=== PATIENT | female | born 1950 | race African-American/Black ===

== ENCOUNTER 2016-07-24 09:44 | Observation (INO) | payer OTHER ==
[2016-07-24 09:56] VITALS: BMI 28.5
[2016-07-24 10:30] LABS: BASOPHIL 0.8 % (0-2.0); EOSINOPHIL 4.3 % (0-4.5); MCH 28.9 pg (25.7-33.7); MCHC 33.4 g/dl (32.0-36.0); MEAN CELL VOLUME 86.5 fl (80-96); MEAN PLT VOLUME 7.9 fl (7.5-11.1); NEUTROPHILS 50.8 % (42.8-82.8); PLATELET COUNT 294 K/MM3 (134-434); RDW 13.5 % (11.6-15.6); WHITE BLOOD COUNT 5.1 K/mm3 (4.0-10.0)
--- NOTE | 2016-07-24 10:34 | PDOC ---
History of Present Illness - General History Source: Patient Exam Limitations: No Limitations - History of Present Illness Initial Comments: 07/24/16 10:38 The patient is a 65-year-old woman with a significant past medical history of hypertension, hypercholesterolemia, seasonal asthma, sleep apnea, diabetes mellitus and a pituitary tumor who presents to the emergency department via EMS for further evaluation of hyperglycemia. Patient states that she woke up at around 04:00 AM this morning, ate a bowl of rice krispies and went back to bed. She states that she woke up at around 06:00 AM to get ready to anabaptist, when she experienced dizziness, described as a room-spinning sensation. She immediately laid back in bed for a few moments, then got up to get water. She states that this has happened before, which was related to her sugars. She states that she checked her blood glucose this morning and reports a blood glucose measurement of 479. She states that she called her friend, who also suffers from diabetes and went to her friends house and noticed a much lower blood glucose measurement. EMS was activated. Blood glucose on scene was 119. She currently states that she is lightheaded. Patient states that she follow with her PMD, Dr. Consuelo Reina. She recently had her annual physical, for which blood and an ekg was performed. Patient state that her Hemoglobin A1C was 9.9 and is aware that she needs to change her eating habits. No fever, chills, generalized weakness. No chest pain, palpitations, headaches, neck pain, visual changes No abdominal pain, nausea, vomiting, diarrhea. No urinary complaints. Allergies: Propoxyphene Past Surgical History: Left hip replacement. Social History: No tobacco, ETOH or recreational drug use. Primary Care Physician: Dr. Consuelo Reina [phone] <Lizeth Farmer - Last Filed: 07/24/16 16:54> - General History Source: Patient, Old Records Exam Limitations: No Limitations <Abigail Sam - Last Filed: 07/24/16 17:36> - General Chief Complaint: Lightheaded Stated Complaint: DIZZINESS Time Seen by Provider: 07/24/16 10:11 Past History <Lizeth Farmer - Last Filed: 07/24/16 16:54> - Past Medical History Asthma: Yes (seasonal allergy,sleep apnea) Cancer: No Cardiac Disorders: No CVA: No COPD: No Diabetes: Yes (niddm) HTN: Yes Hypercholesterolemia: Yes - Surgical History Orthopedic Surgery: Yes (left hip replacement) - Immunization History Td Vaccination: Yes TDAP Vaccination: Yes Immunization Up to Date: Yes - Psycho/Social/Smoking Cessation Hx Anxiety: No Suicidal Ideation: No Smoking Status: Yes Smoking History: Former smoker Years of Tobacco Use: 10 Have you smoked in the past 12 months: No Number of Cigarettes Smoked Daily: 0 If you are a former smoker, when did you quit?: 1995 Cigars Per Day: 0 Information on smoking cessation initiated: No Hx Alcohol Use: No Drug/Substance Use Hx: No Substance Use Type: None Hx Substance Use Treatment: No <Abigail Sam - Last Filed: 07/24/16 17:36> - Past Medical History Allergies/Adverse Reactions: Allergies Allergy/AdvReac Type Severity Reaction Status Date / Time propoxyphene HCl Allergy Swelling Verified 07/24/16 09:52 [From Evin] Home Medications: Ambulatory Orders Aspirin [ASA -] 81 mg PO DAILY 05/08/12 Metformin HCl [Glucophage] 1,000 mg PO BID 05/08/12 Simvastatin [Zocor -] 20 mg PO HS 05/08/12 Losartan/Hydrochlorothiazide [Losartan-Hctz 50-12.5 mg Tab] 1 each PO DAILY 03/20 Salmeterol/Fluticasone [Advair 250Mcg/50Mcg -] 1 inh PO BID PRN 11/15/12 Albuterol Sulfate Inhaler - [Ventolin Hfa Inhaler -] 2 inh PO Q4H PRN 07/24/16 Ferrous Sulfate/Licor Rt Ext [Maryam Allen Herbal Tablet] 75 mg PO TIDCM Naproxen [Naprosyn -] 500 mg PO BID PRN 07/24/16 Review of Systems - Review of Systems Able to Perform ROS?: Yes Comments:: 07/24/16 10:38 GENERAL/CONSTITUTIONAL: No fever or chills. No weakness. HEAD, EYES, EARS, NOSE AND THROAT: No change in vision. No ear pain or discharge. No sore throat. CARDIOVASCULAR: Yes: Dizziness. Lightheadedness. No chest pain or shortness of breath. RESPIRATORY: No cough, wheezing, or hemoptysis. GASTROINTESTINAL: No nausea, vomiting, diarrhea or constipation. GENITOURINARY: No dysuria, frequency, or change in urination. MUSCULOSKELETAL: No joint or muscle swelling or pain. No neck or back pain. SKIN: No rash NEUROLOGIC: Yes: Dizziness. Lightheadedness. No loss of consciousness, or change in strength/sensation. ENDOCRINE: Yes: Hyperglycemia. No increased thirst. No abnormal weight change. HEMATOLOGIC/LYMPHATIC: No anemia, easy bleeding, or history of blood clots. ALLERGIC/IMMUNOLOGIC: No hives or skin allergy. <Lizeth Farmer - Last Filed: 07/24/16 16:54> *Physical Exam - Vital Signs Last Vital Signs Temp Pulse Resp BP Pulse Ox 98.8 F 97 H 18 145/94 98 07/24/16 09:52 07/24/16 09:52 07/24/16 09:52 07/24/16 09:52 07/24/16 09:52 - Physical Exam Comments: 07/24/16 10:40 GENERAL: Awake, alert, and fully oriented, in no acute distress HEAD: No signs of trauma EYES: PERRLA, EOMI, sclera anicteric, conjunctiva clear ENT: There is cerumen in the right ear, thus, the right tympanic membrane is not visible. Left tympanic membrane is within normal limits. Hearing grossly normal, nares patent, oropharynx clear without exudates. Moist mucosa NECK: Normal ROM, supple, no lymphadenopathy, JVD, or masses LUNGS: Breath sounds equal, clear to auscultation bilaterally. No wheezes, and no crackles HEART: Regular rate and rhythm, normal S1 and S2, no murmurs, rubs or gallops ABDOMEN: Soft, nontender, normoactive bowel sounds. No guarding, no rebound. No masses EXTREMITIES: Normal range of motion, no edema. No clubbing or cyanosis. No cords, erythema, or tenderness NEUROLOGICAL: Cranial nerves II through XII grossly intact. Normal speech, normal gait <Lizeth Farmer - Last Filed: 07/24/16 16:54> - Vital Signs Last Vital Signs Temp Pulse Resp BP Pulse Ox 98.8 F 97 H 18 145/94 98 07/24/16 09:52 07/24/16 09:52 07/24/16 09:52 07/24/16 09:52 07/24/16 09:52 <Abigail Sam - Last Filed: 07/24/16 17:36> ED Treatment Course - LABORATORY CBC & Chemistry Diagram: 07/24/16 10:20 07/24/16 10:20 - RADIOLOGY Radiograph Interpretation: 07/24/16 12:32 EXAM: RAD/CHEST X-RAY PORTABLE IMPRESSION: A single view the chest reveals little change since the prior study of 11/15/2012. There is an apical lordotic projection with clear lungs, normal mediastinum and sharp angles. Soft tissues are intact. There are degenerative changes. EXAM: CT/HEAD CT WITHOUT CONTRAST IMPRESSION: Sequential axial images were obtained from the base of the skull to the vertex. There is no evidence of acute intracranial hemorrhage, mass lesions or infarctions. There is a mild degree of diffuse cerebral atrophy with sulcal widening and ventricular dilatation. There is complete opacification of the right maxillary sinus and partial opacification of the right ethmoid sinus. This is consistent with acute/chronic sinusitis. Since a prior study dated 2012, there has been no significant change. <Lizeth Farmer - Last Filed: 07/24/16 16:54> - LABORATORY CBC & Chemistry Diagram: 07/24/16 10:20 07/24/16 10:20 - RADIOLOGY Radiology Studies Ordered: Category Date Time Status CHEST X-RAY PORTABLE* [RAD] Stat Radiology 07/24/16 10:08 Ordered <Abigail Sam - Last Filed: 07/24/16 17:36> Medical Decision Making - Medical Decision Making 07/24/16 16:55 Page sent out to Dr. Consuelo Reina. <Lizeth Farmer - Last Filed: 07/24/16 16:54> - Medical Decision Making 07/24/16 10:32 65-year-old female with history of diabetes, hypertension, pituitary tumor and sleep apnea who presents to the emergency Department with complaints of dizziness first described as the room spinning not lightheaded; there is no chest pain or difficulty breathing. Blood glucose in the field was 129. Differential diagnosis includes but is not limited to: Vertigo, anemia, ACS, dehydration, infection, electrolyte abnormality, toxic/metabolic derangement. Plan: 1. Labs 2. Chest x-ray 3. EKG 4. Urine 5. Observe and reevaluate 07/24/16 15:57 Addendum: All labs were reviewed and are noted in the EMR and were discussed with the patient. I've reevaluate we did the patient at this time and she is feeling improved. Cardiac enzymes are negative 2. Will discharge home. Follow- up with primary care physician within one week and return to the emergency department if symptoms persist, worsen, or new symptoms arise. 07/24/16 16:39 Attempted to discharge the patient home but she stated that she continued to feel like she was going to pass out and was very dizzy and did not feel safe going home. I will admit to observation for serial cardiac enzymes and re- evaluation. <Abigail Sam - Last Filed: 07/24/16 17:36> *DC/Admit/Observation/Transfer - Attestations Scribe Attestion: 07/24/16 10:40 Documentation prepared by Lizeth Farmer, acting as medical center director for Abigail Sam MD. <Lizeth Farmer - Last Filed: 07/24/16 16:54> - Discharge Dispostion Admit: Yes - Attestations Physician Attestion: 07/24/16 10:34 I, Dr. Abigail Sam, attest that the scribes documentation that appears above has been prepared under my direction and personally reviewed by me in its entirety. I confirmed that the note above accurately reflects all work, treatment, procedures, and medical decision-making performed by me. <Abigail Sam - Last Filed: 07/24/16 17:36> Diagnosis at time of Disposition: Lightheaded - Discharge Dispostion Disposition: HOME Condition at time of disposition: Stable - Referrals Referrals: Consuelo Reina MD [Primary Care Provider] - - Patient Instructions Printed Discharge Instructions: DI for Dizziness-Nonvertigo Additional Instructions: Follow-up with your primary care physician within one week. Return to the ED if your symptoms persist, worsen or new symptoms arise.
[2016-07-24 10:59] LABS: ALBUMIN 4.2 g/dl (3.4-5.0); ANION GAP 10 (8-16); BILIRUBIN,TOTAL 0.4 mg/dL (0.2-1.0); CALCIUM 9.5 mg/dL (8.5-10.1); CO2 26 mmol/L (21-32); CREATININE 0.9 mg/dL (0.55-1.02); GLUCOSE,RANDOM 123 mg/dL (74-106); SGOT/AST 26 U/L (15-37); SGPT/ALT 56 U/L (12-78); TOT PROT 7.7 g/dl (6.4-8.2)
[2016-07-24 11:01] LABS: ALK PHOS 89 U/L (45-117); TROPONIN I < 0.02 ng/ml (0.00-0.05)
--- NOTE | 2016-07-24 11:09 | EKG ---
Test Reason : Blood Pressure : / mmHG Vent. Rate : 087 BPM Atrial Rate : 087 BPM P-R Int : 150 ms QRS Dur : 070 ms QT Int : 376 ms P-R-T Axes : 034 -10 016 degrees QTc Int : 452 ms NORMAL SINUS RHYTHM MINIMAL VOLTAGE CRITERIA FOR LVH, MAY BE NORMAL VARIANT BORDERLINE ECG WHEN COMPARED WITH ECG OF 16-APR-2014 21:59, NO SIGNIFICANT CHANGE WAS FOUND Confirmed by EDNA GLOVER MD ([id number]) on 07/24/2016 11:08:52 AM Referred By: Confirmed By:EDNA GLOVER MD
[2016-07-24 12:58] LABS: URINE APPEARANCE CLEAR; URINE BILIRUBIN NEGATIVE (NEGATIVE); URINE BLOOD NEGATIVE (NEGATIVE); URINE COLOR STRAW; URINE GLUCOSE (UA) NEGATIVE (NEGATIVE); URINE KETONE NEGATIVE (NEGATIVE); URINE LEUK ESTERASE NEGATIVE (NEGATIVE); URINE NITRITE NEGATIVE (NEGATIVE); URINE PROTEIN NEGATIVE (NEGATIVE); URINE UROBILINOGEN NEGATIVE E.U./dl (0.2-1.0)
[2016-07-24 14:43] LABS: TROPONIN I < 0.02 ng/ml (0.00-0.05)
[2016-07-24] MEDS ORDERED: SODIUM CHLORIDE 1,000 ML IV SCH ×2 (18:00→18:45)
--- NOTE | 2016-07-24 18:29 | HP ---
Admitting History and Physical - Admission Chief Complaint: DIzziness and vertigo x 1 day History of Present Illness: 65 year old female that presents c/o dizziness and vertigo that started today . Exacerbated by supine position . Denies weakness or syncope. Associated her symptoms with intake of over the counter herbal supplement. Had BG of 470 this am History Source: Patient Limitations to Obtaining History: No Limitations - Past Medical History Cardiovascular: Yes: HTN, Hyperlipdemia Pulmonary: Yes: Asthma, Sleep Apnea Reproductive: Yes: Postmenopausal Musculoskeletal: Yes: Osteoarthritis Endocrine: Yes: Other (pituitary tumor) - Past Surgical History Additional Past Surgical History: hip replacement - Smoking History Smoking history: Former smoker Have you smoked in the past 12 months: No Aproximately how many cigarettes per day: 0 If you are a former smoker, when did you quit?: 1995 - Alcohol/Substance Use Hx Alcohol Use: No History of Substance Use: reports: None - Social History Usual Living Arrangement: Yes: With Spouse ADL: Independent History of Recent Travel: No Home Medications - Allergies Allergies/Adverse Reactions: Allergies Allergy/AdvReac Type Severity Reaction Status Date / Time propoxyphene HCl Allergy Swelling Verified 07/24/16 09:52 [From Darvon] - Home Medications Home Medications: Ambulatory Orders Aspirin [ASA -] 81 mg PO DAILY 05/08/12 Metformin HCl [Glucophage] 1,000 mg PO BID 05/08/12 Simvastatin [Zocor -] 20 mg PO HS 05/08/12 Losartan/Hydrochlorothiazide [Losartan-Hctz 50-12.5 mg Tab] 1 each PO DAILY 03/20 Salmeterol/Fluticasone [Advair 250Mcg/50Mcg -] 1 inh PO BID PRN 11/15/12 Albuterol Sulfate Inhaler - [Ventolin Hfa Inhaler -] 2 inh PO Q4H PRN 07/24/16 Ferrous Sulfate/Licor Rt Ext [Maryam Allen Herbal Tablet] 75 mg PO TIDCM Naproxen [Naprosyn -] 500 mg PO BID PRN 07/24/16 Home Medications (free text): Maryam Allen herbal supplement x 2 days Family Disease History - Family Disease History Family Disease History: Diabetes: Father, Mother Review of Systems - Review of Systems Constitutional: reports: Night Sweats (flushing , postmenopausal) Eyes: reports: No Symptoms HENT: reports: No Symptoms Neck: reports: No Symptoms Cardiovascular: reports: No Symptoms Respiratory: reports: No Symptoms Gastrointestinal: reports: No Symptoms Genitourinary: reports: No Symptoms Breasts: reports: No Symptoms Reported Musculoskeletal: reports: No Symptoms Integumentary: reports: No Symptoms Endocrine: reports: Excessive Sweating Hematology/Lymphatic: reports: No Symptoms Psychiatric: reports: No Symptoms Physical Examination Vital Signs: Vital Signs Temperature 98.8 F 07/24/16 09:52 Pulse Rate 92 H 07/24/16 16:37 Respiratory Rate 16 07/24/16 16:37 Blood Pressure 143/85 07/24/16 16:37 O2 Sat by Pulse Oximetry (%) 95 07/24/16 16:37 Constitutional: Yes: Well Nourished, No Distress, Calm Eyes: Yes: WNL, Conjunctiva Clear, EOM Intact HENT: Yes: WNL, Atraumatic, Normocephalic Neck: Yes: WNL, Supple, Trachea Midline Cardiovascular: Yes: WNL, Regular Rate and Rhythm, Pulse Irregular, S1, S2 Respiratory: Yes: WNL, Regular, CTA Bilaterally Gastrointestinal: Yes: WNL, Normal Bowel Sounds, Soft ...Rectal Exam: Yes: Deferred Musculoskeletal: Yes: WNL Extremities: Yes: WNL Edema: No Peripheral Pulses WNL: Yes Integumentary: Yes: WNL Neurological: Yes: WNL, Alert, Oriented ...Motor Strength: WNL Psychiatric: Yes: WNL Labs: CBC, BMP 07/24/16 10:20 07/24/16 10:20 Imaging - Results Cat Scan: Report Reviewed (WNL) Problem List - Problems (1) Lightheaded Assessment/Plan: 65 year old female with dizziness and vertigo , negative workup but feels that she might pass out and unsafe to go home 1. Dizziness/vertigo - Neuro checks -observe -PT eval -meclizine x 1 and see response 2. DM - uncontrolled - SS insulin - Last A1C > 9.9 - c/w metformin 3. HTN - c/w home medication regimen and monitor BP 4. DVT PPX -SCD Observation Code(s): R42 - DIZZINESS AND GIDDINESS Visit type - Emergency Visit Emergency Visit: Yes Care time: The patient presented to the Emergency Department on the above date and was hospitalized for further evaluation of their emergent condition. - New Patient This patient is new to me today: Yes Date on this admission: 07/24/16 - Critical Care Critical Care patient: No
[2016-07-24] MEDS ORDERED: MECLIZINE HCL 25 MG TABLET (FP) PO ONE (18:36)
[2016-07-24] MEDS ORDERED: MECLIZINE HCL 25 MG TABLET (FP) ONE (18:48)
[2016-07-24] MEDS ORDERED: ATORVASTATIN CA 10 MG TABLET (FP) PO SCH (22:00)
[2016-07-24] MEDS: BUDESONIDE/FORMETEROL FUMARATE 80/4.5 mcg INHALER IH SCH (23:57)
[2016-07-25] MEDS ORDERED: metFORMIN HCL 500 MG TABLET (FP) ONE (06:57)
[2016-07-25] MEDS ORDERED: INSULIN REGULAR HUMAN 100 UNITS/ML *VIAL ONE ×2 (06:58→13:21)
[2016-07-25] MEDS ORDERED: metFORMIN HCL 500 MG TABLET (FP) PO SCH (07:00)
[2016-07-25] MEDS: INSULIN SLIDING SCALE (NOVOLOG) 1 VIAL SQ SCH ×2 (07:06→12:48)
[2016-07-25 07:07] VITALS: BP 116/84; PULSE 75
[2016-07-25] MEDS ORDERED: ASPIRIN 81 MG CHEWABLE TABLETS PO SCH (10:00)
[2016-07-25] MEDS ORDERED: LOSARTAN 50MG/HCTZ 12.5MG 1 TAB (FP) PO SCH (10:00)
[2016-07-25] MEDS ORDERED: ASPIRIN 81 MG CHEWABLE TABLETS ONE (10:06)
[2016-07-25] MEDS ORDERED: HYDROCHLOROTHIAZIDE 25 MG TABLET (FP) ONE (10:10)
[2016-07-25] MEDS: BUDESONIDE/FORMETEROL FUMARATE 80/4.5 mcg INHALER IH SCH (10:23)
[2016-07-25 10:28] VITALS: TEMP 98.2
[2016-07-25] MEDS ORDERED: SODIUM CHLORIDE 1,000 ML IV STA (11:24)
--- NOTE | 2016-07-25 11:31 | DS ---
Physical Exam: SUBJECTIVE: Patient seen and examined at bedside complained of headache this morning which has resolved OBJECTIVE: Vital Signs Period Temp Pulse Resp BP Sys/Rojas Pulse Ox Last 24 Hr 75 19 116/84 98-98 PHYSICAL EXAM GENERAL: The patient is awake, alert, and fully oriented, in no acute distress. HEAD: Normal with no signs of trauma. EYES: PERRL, extraocular movements intact, sclera anicteric, conjunctiva clear. ENT: moist mucous membranes. NECK: Trachea midline supple. LUNGS: Breath sounds equal, clear to auscultation bilaterally HEART: Regular rate and rhythm, S1, S2 ABDOMEN: Soft, nontender, nondistended EXTREMITIES: no edema. NEUROLOGICAL: Cranial nerves II through XII intact. Normal speech LABS Laboratory Results - last 24 hr 07/25/16 06:50 POC Glucometer [id number] HOSPITAL COURSE: Date of Admission:07/24/16 Date of Discharge: 07/25/16 65F with history of HTN HLD Asthma JERE osteoarthritis pituitary tumor presented to the ED with dizziness. She was worked up with labs and a CT scan and all work up was negative. Dr. Reina her PMD was contacted at her office this morning and stated patient has had a cardfiac work up as an outpatient. She also saw Dr. Dorman who is her neurologist and also had a work up in his office as well per patient. Patient's dizziness improved and no further work up indicated. Patient adequately resuscitated with IVF. tolerating diet. Requested glucometer and prescription given. patient is stable for discharge. Dr. Reina aware and will see her in her office in the next 1-2 days Minutes to complete discharge: 45 Discharge Summary Reason For Visit: LIGHTHEADED, DIZZINESS Current Active Problems Dizziness (Acute) Lightheaded (Acute) Condition: Stable - Instructions Diet, Activity, Other Instructions: Follow-up with your primary care physician within one week. Return to the ED if your symptoms persist, worsen or new symptoms arise. Referrals: Consuelo Reina MD [Primary Care Provider] - - Home Medications Comprehensive Discharge Medication List: Ambulatory Orders Aspirin [ASA -] 81 mg PO DAILY 05/08/12 Metformin HCl [Glucophage] 1,000 mg PO BID 05/08/12 Simvastatin [Zocor -] 20 mg PO HS 05/08/12 Losartan/Hydrochlorothiazide [Losartan-Hctz 50-12.5 mg Tab] 1 each PO DAILY 03/20 Salmeterol/Fluticasone [Advair 250Mcg/50Mcg -] 1 inh PO BID PRN 11/15/12 Albuterol Sulfate Inhaler - [Ventolin HFA Inhaler -] 2 inh PO Q4H PRN 07/24/16 Ferrous Sulfate/Licor Rt Ext [Maryam Allen Herbal Tablet] 75 mg PO TIDCM Naproxen [Naprosyn -] 500 mg PO BID PRN 07/24/16 Miscellaneous Medical Supply [Glucometer Device] 1 each .ROUTE ASDIR #1 kit This patient is new to me today: Yes Date on this admission: 07/25/16 Emergency Visit: No Critical Care patient: No - Discharge Referral Referred to [facility] No
[2016-07-25] MEDS ORDERED: ACETAMINOPHEN 325 MG TABLET (FP) ONE (13:21)
--- NOTE | 2016-07-25 16:02 | PN ---
Teaching Attending Note Name of Resident: Jose Giles ATTENDING PHYSICIAN STATEMENT I saw and evaluated the patient. I reviewed the resident's note and discussed the case with the resident. I agree with the resident's findings and plan as documented. Vital Signs Temperature 98.2 F 07/24/16 10:15 Pulse Rate 75 07/25/16 07:07 Respiratory Rate 19 07/25/16 07:07 Blood Pressure 116/84 07/25/16 07:07 O2 Sat by Pulse Oximetry (%) 98 07/25/16 07:07 CBCD WBC 5.1 K/mm3 (4.0-10.0) 07/24/16 10:20 RBC 4.46 M/mm3 (3.60-5.2) 07/24/16 10:20 Hgb 12.9 GM/dL (10.7-15.3) 07/24/16 10:20 Hct 38.6 % (32.4-45.2) 07/24/16 10:20 MCV 86.5 fl (80-96) 07/24/16 10:20 MCHC 33.4 g/dl (32.0-36.0) 07/24/16 10:20 RDW 13.5 % (11.6-15.6) 07/24/16 10:20 Plt Count 294 K/MM3 (134-434) 07/24/16 10:20 MPV 7.9 fl (7.5-11.1) 07/24/16 10:20 CMP Sodium 139 mmol/L (136-145) 07/24/16 10:20 Potassium 4.0 mmol/L (3.5-5.1) 07/24/16 10:20 Chloride 103 mmol/L (98-107) 07/24/16 10:20 Carbon Dioxide 26 mmol/L (21-32) 07/24/16 10:20 Anion Gap 10 (8-16) 07/24/16 10:20 BUN 14 mg/dL (7-18) 07/24/16 10:20 Creatinine 0.9 mg/dL (0.55-1.02) 07/24/16 10:20 Creat Clearance w eGFR > 60 (>60) 07/24/16 10:20 Random Glucose 123 mg/dL (74-106) H D 07/24/16 10:20 Calcium 9.5 mg/dL (8.5-10.1) 07/24/16 10:20 Total Bilirubin 0.4 mg/dL (0.2-1.0) D 07/24/16 10:20 AST 26 U/L (15-37) 07/24/16 10:20 ALT 56 U/L (12-78) 07/24/16 10:20 Alkaline Phosphatase 89 U/L (45-117) 07/24/16 10:20 Total Protein 7.7 g/dl (6.4-8.2) 07/24/16 10:20 Albumin 4.2 g/dl (3.4-5.0) 07/24/16 10:20 CARDIAC ENZYMES Creatine Kinase 106 IU/L (26-192) 07/24/16 14:08 Troponin I < 0.02 ng/ml (0.00-0.05) 07/24/16 14:08 Current Medications Generic Name Dose Route Start Last Admin Trade Name Kitq PRN Reason Stop Dose Admin Aspirin 81 mg 07/25/16 10:00 07/25/16 10:23 Asa - PO 81 mg DAILY CAYDEN Administration Atorvastatin Calcium 10 mg 07/24/16 22:00 07/24/16 23:57 Lipitor - PO 10 mg HS CAYDEN Administration Budesonide/Formoterol Fumarate 2 puff 07/24/16 22:00 07/25/16 10:23 Symbicort 80/4.5mcg - IH 2 puff BID CAYDEN Administration HCTZ/Losartan Potassium 1 tab 07/25/16 10:00 07/25/16 10:23 Hyzaar - PO 1 tab DAILY CAYDEN Administration Sodium Chloride 1,000 mls @ 75 mls/hr 07/24/16 18:00 07/24/16 18:58 Normal Saline - IV 75 mls/hr ASDIR CAYDEN Administration Insulin Aspart 1 vial 07/25/16 07:00 07/25/16 12:48 Novolog Vial Sliding Scale - SQ 2 units TIDAC CAYDEN Administration Protocol Metformin HCl 1,000 mg 07/25/16 07:00 07/25/16 07:06 Glucophage - PO 1,000 mg BIDAC CAYDEN Administration Home Medications Medication Instructions Recorded Aspirin [ASA -] 81 mg PO DAILY 05/08/12 Metformin HCl [Glucophage] 1,000 mg PO BID 01/01/13 Simvastatin [Zocor -] 20 mg PO HS 05/08/12 Losartan/Hydrochlorothiazide 1 each PO DAILY 11/15/12 [Losartan-Hctz 50-12.5 mg Tab] Salmeterol/Fluticasone [Advair 1 inh PO BID PRN 11/15/12 250Mcg/50Mcg -] Albuterol Sulfate Inhaler - 2 inh PO Q4H PRN 07/24/16 [Ventolin HFA Inhaler -] Ferrous Sulfate/Licor Rt Ext 75 mg PO TIDCM 07/24/16 [Maryam Allen Herbal Tablet] Naproxen [Naprosyn -] 500 mg PO BID PRN 07/24/16 Miscellaneous Medical Supply 1 each .ROUTE ASDIR #1 kit 07/25/16 [Glucometer Device] ASSESSMENT AND PLAN: 65 year old female with dizziness and vertigo , negative workup but feels that she might pass out and unsafe to go home # Dizziness/vertigo - Neuro checks -observe -PT eval -meclizine x 1 and see response 2. DM - uncontrolled - SS insulin - Last A1C > 9.9 - c/w metformin 3. HTN - c/w home medication regimen and monitor BP 4. DVT PPX -SCD
== END 2016-07-25 13:00 | disposition home or self-care (01) ==
LOC: JER 09:44 → JERBED 17:36
PROVIDERS: ADMIT Internal Medicine; ATTEND Internal Medicine
DX: R42 Dizziness and giddiness (principal); I10 Essential (primary) hypertension; E78.5 Hyperlipidemia, unspecified; Z87.891 Personal history of nicotine dependence; E11.65 Type 2 diabetes mellitus with hyperglycemia
CPT/HCPCS: 36415; 70450-TC; 71010-TC; 80053; 81003; 82550; 84484; 85025; 93005; 93010; 99285-25; G0378

== ENCOUNTER 2017-11-17 15:04 | Emergency (ER) | payer OTHER ==
[2017-11-17 15:20] VITALS: BP 123/72; PULSE 113; TEMP 98.3; BMI 27.4
[2017-11-17] MEDS ORDERED: DIPHTH,PERTUSS(ACELL),TET 0.5 ML DISP.SYRIN IM ONE (15:22)
--- NOTE | 2017-11-17 15:22 | PDOC ---
Rapid Medical Evaluation Time Seen by Provider: 11/17/17 15:16 Medical Evaluation: Allergies Allergy/AdvReac Type Severity Reaction Status Date / Time propoxyphene HCl Allergy Swelling Verified 11/17/17 15:15 [From Evin] 11/17/17 15:16 I have performed a brief in-person evaluation of this patient. draiange to L great toe wound, currently on keflex. Also req tetanus shot as she refused shot recently. H/o DM, HLD, HTN, arthritis to L knee, ambulates w/ walker Pertinent physical exam findings: tachy to 113 but afebrile and stable otherwise , well yuan w/ superficial wound to dorsum of L great toe, clean and dry, no erythema or swelling I have ordered the following:boostrix The patient will proceed to the ED for further evaluation. 11/17/17 15:22 Discharge Disposition - Diagnosis Open toe wound Qualifiers: Encounter type: initial encounter Qualified Code(s): S91.109A - Unspecified open wound of unspecified toe(s) without damage to nail, initial encounter - Referrals - Patient Instructions - Post Discharge Activity
--- NOTE | 2017-11-17 16:00 | PDOC ---
History of Present Illness - General Chief Complaint: Laceration Stated Complaint: PAIN Time Seen by Provider: 11/17/17 15:16 - History of Present Illness Initial Comments: 67-year-old female with past medical history significant for hypertension presents for evaluation of a wound on her left great toe after closing it accidentally an elevator door 4 days ago. She was seen at [facility] x- rays were taken which were negative she was placed on Keflex and instructed to wash the wound out with soap and water. She's had no changes since her initial presentation at [facility] 11/17/17 15:58 Past History - Past Medical History Allergies/Adverse Reactions: Allergies Allergy/AdvReac Type Severity Reaction Status Date / Time propoxyphene HCl Allergy Swelling Verified 11/17/17 15:15 [From [facility]] Home Medications: Ambulatory Orders Aspirin [ASA -] 81 mg PO DAILY 05/08/12 Simvastatin [Zocor -] 20 mg PO HS 05/08/12 metFORMIN HCL [Glucophage] 1,000 mg PO BID 05/08/12 Losartan/Hydrochlorothiazide [Losartan-Hctz 50-12.5 mg Tab] 1 each PO DAILY 03/20 Salmeterol/Fluticasone [Advair 250Mcg/50Mcg -] 1 inh PO BID PRN 11/15/12 Albuterol Sulfate Inhaler - [Ventolin HFA Inhaler -] 2 inh PO Q4H PRN 07/24/16 Ferrous Sulfate/Licor Rt Ext [Maryam Allen Herbal Tablet] 75 mg PO TIDCM Naproxen [Naprosyn -] 500 mg PO BID PRN 07/24/16 Miscellaneous Medical Supply [Glucometer Device] 1 each .ROUTE ASDIR #1 kit Asthma: Yes (seasonal allergy,sleep apnea) Cancer: No Cardiac Disorders: No CVA: No COPD: No DVT: No Diabetes: Yes (niddm) HTN: Yes Hypercholesterolemia: Yes - Surgical History Orthopedic Surgery: Yes (left hip replacement) - Immunization History Td Vaccination: Yes TDAP Vaccination: Yes Immunization Up to Date: Yes - Suicide/Smoking/Psychosocial Hx Smoking Status: Yes Smoking History: Former smoker Years of Tobacco Use: 10 Have you smoked in the past 12 months: No Number of Cigarettes Smoked Daily: 0 If you are a former smoker, when did you quit?: 1995 Cigars Per Day: 0 Information on smoking cessation initiated: No Hx Alcohol Use: No Drug/Substance Use Hx: No Substance Use Type: None Hx Substance Use Treatment: No Review of Systems - Review of Systems Musculoskeletal: Yes: Symptoms Reported All Other Systems: Reviewed and Negative *Physical Exam - Vital Signs Last Vital Signs Temp Pulse Resp BP Pulse Ox 98.3 F 113 H 19 123/72 99 11/17/17 15:15 11/17/17 15:15 11/17/17 15:15 11/17/17 15:15 11/17/17 15:15 - Physical Exam Comments: Left great toe is normal skin color and temperature there is a superficial abrasion about the medial aspect overlying the IPJ there is no losing the wound is dry there are no gross sensorimotor deficits she's neurovascularly intact tenderness about the area is appropriate 11/17/17 15:58 ED Treatment Course - Medications Given in the ED: ED Medications Discontinued Medications Generic Name Dose Route Start Last Admin Trade Name Freq PRN Reason Stop Dose Admin Diphtheria/Tetanus/Acell Pertussis 0.5 ml 11/17/17 15:22 11/17/17 15:52 Boostrix - IM 11/17/17 15:23 0.5 ml .ONCE ONE Administration Medical Decision Making - Medical Decision Making Note the patient did tell me she did get a tetanus shot at that she initially refused it at [facility] area she was given wound instructions to wash the area with soap and water. I agree with these instructions. There is no intervention needed at this time. And she is on Keflex as well. 11/17/17 15:59 *DC/Admit/Observation/Transfer Diagnosis at time of Disposition: Open toe wound Qualifiers: Encounter type: initial encounter Qualified Code(s): S91.109A - Unspecified open wound of unspecified toe(s) without damage to nail, initial encounter - Discharge Dispostion Disposition: HOME Condition at time of disposition: Stable - Referrals - Patient Instructions Printed Discharge Instructions: DI for Abrasion Additional Instructions: Continue keep the wound clean and dry with soap and water follow-up with family practice for further wound management. Return to the emergency room should symptoms worsen or go unresolved. Continue the antibiotics as directed. - Post Discharge Activity
== END 2017-11-17 16:22 | disposition home or self-care (01) ==
LOC: JERFT 15:04
PROC: 3E0234Z Introduction of Serum, Toxoid and Vaccine into Muscle, Percutaneous Approach (ICD-10-PCS; principal; 2017-11-17)
DX: S91.102A Unspecified open wound of left great toe without damage to nail, initial encounter (principal); W23.0XXA Caught, crushed, jammed, or pinched between moving objects, initial encounter; Y93.89 Activity, other specified; Y92.89 Other specified places as the place of occurrence of the external cause; Y99.8 Other external cause status; I10 Essential (primary) hypertension; E11.9 Type 2 diabetes mellitus without complications; Z79.84 Long term (current) use of oral hypoglycemic drugs; M13.862 Other specified arthritis, left knee; R26.89 Other abnormalities of gait and mobility; Z99.89 Dependence on other enabling machines and devices; Z96.642 Presence of left artificial hip joint; Z87.891 Personal history of nicotine dependence
CPT/HCPCS: 90471; 90715; 99281-25

== ENCOUNTER 2018-01-23 14:27 | Inpatient (IN) | payer OTHER ==
--- NOTE | 2018-01-23 14:36 | PDOC ---
Rapid Medical Evaluation Chief Complaint: Lightheaded Time Seen by Provider: 01/23/18 14:31 Medical Evaluation: Allergies Allergy/AdvReac Type Severity Reaction Status Date / Time propoxyphene HCl Allergy Swelling Verified 01/23/18 14:30 [From Evin] 01/23/18 14:31 I have performed a brief in-person evaluation of this patient. The patient presents with a CC of: Dizziness HPI: Pt states she has a hx of dizziness treated with Meclizine. She states she has been "dizzy" since Monday. She denies slurred speech, denies UE or LE paresthesia or weakness. Pertinent PE findings: Skin: Clear, no rashes Heart: Sinus Tachy, regular rhythm, no murmurs, rubs or gallops Lungs: Clear to auscultation Musculoskeletal: Moves all extremities without difficulty. Neuro: Smile symmetric. No protonator drift, 5/5 strength in UE and LE groups. Psych: Appropriate affect. I have ordered the following: Labs, EKG The patient will proceed to the ED for further evaluation. Discharge Disposition - Referrals Referrals: Kimberly Umaña MD [Primary Care Provider] - - Patient Instructions - Post Discharge Activity
[2018-01-23 15:06] LABS: BASO % 0.8 % (0-2.0); EOS % 4.9 % (0-4.5); HEMATOCRIT 41.1 % (32.4-45.2); LYMPH % 24.9 % (8-40); MCH 29.4 pg (25.7-33.7); MEAN CELL VOLUME 86.5 fl (80-96); MONO % 9.9 % (3.8-10.2); NEUT % 59.5 % (42.8-82.8); PLATELET COUNT 356 K/MM3 (134-434); RBC 4.75 M/mm3 (3.60-5.2); RDW 13.2 % (11.6-15.6); WHITE BLOOD COUNT 5.8 K/mm3 (4.0-10.0)
[2018-01-23] MEDS ORDERED: SODIUM CHLORIDE 0.9% 1000 ML INFUS.BAG IV STA (15:26)
[2018-01-23] MEDS ORDERED: ACETAMINOPHEN 1000 MG/100 ML VIAL (NON FORMULARY) IVPB ONE (15:30)
[2018-01-23 15:33] LABS: ALBUMIN 4.9 g/dl (3.4-5.0); ANION GAP 12 MMOL/L (8-16); BILIRUBIN,TOTAL 0.4 mg/dL (0.2-1); BLOOD UREA NITROGEN 17 mg/dL (7-18); CALCIUM 8.6 mg/dL (8.5-10.1); CHLORIDE 104 mmol/L (98-107); CO2 23 mmol/L (21-32); GLUCOSE,RANDOM 156 mg/dL (74-106); POTASSIUM 3.8 mmol/L (3.5-5.1); SGOT/AST 20 U/L (15-37); SGPT/ALT 39 U/L (13-61); SODIUM 139 mmol/L (136-145); TOT PROT 8.6 g/dl (6.4-8.2)
[2018-01-23 15:35] LABS: ALK PHOS 112 U/L (45-117); INR 0.88 (0.83-1.09)
--- NOTE | 2018-01-23 15:44 | PDOC ---
Attending Attestation - Resident Resident Name: KeithMario witt - ED Attending Attestation I have performed the following: I have examined & evaluated the patient, The case was reviewed & discussed with the resident, I agree w/resident's findings & plan, Exceptions are as noted - HPI HPI: 01/23/18 15:45 67 F with h/o HTN presenting to ED with lightheadedness. Pt states it started about 3 days ago. She reports feeling very weak, stating that all she does is eat and lie in bed. Pt denies room-spinning sensation. Denies CP/SOB. Endorses fatigue. Denies subjective fevers/chills though found to be febrile in ED. Denies cough. Denies N/V/D. Denies dysuria. - Physicial Exam PE: 01/23/18 15:45 "GENERAL: Awake, alert, and fully oriented, in no acute distress. HEAD: No signs of trauma EYES: PERRLA, EOMI, sclera anicteric, conjunctiva clear ENT: Auricles normal inspection, hearing grossly normal, nares patent, oropharynx clear without exudates. Moist mucosa NECK: Nontender, no stepoffs, Normal ROM, supple, no lymphadenopathy, JVD, or masses LUNGS: Breath sounds equal, clear to auscultation bilaterally. No wheezes, and no crackles HEART: Regular rate and rhythm, normal S1 and S2, no murmurs, rubs or gallops ABDOMEN: Soft, nontender, normoactive bowel sounds. No guarding, no rebound. No masses EXTREMITIES: Normal range of motion, no edema. No clubbing or cyanosis. No cords, erythema, or tenderness NEUROLOGICAL: Cranial nerves II through XII intact. 5/5 strength and sensation in all extremities, Normal speech, normal gait, normal cerebellar function SKIN: Warm, Dry, normal turgor, no rashes or lesions noted." - Medical Decision Making 01/23/18 15:46 67 F with lightheadedness, found to be febrile and tachycardic in ED. No focal infectious s/s. - Labs, cultures - CXR, UA - IVF, tylenol 01/23/18 15:56 Spoke with pt's sister Anastasia and informed her pt is here. Lactate elevated. Will cover empirically for sepsis with unclear source. Admitted to hospitalist
--- NOTE | 2018-01-23 15:49 | PDOC ---
History of Present Illness - General Chief Complaint: Lightheaded Stated Complaint: DIZZINESS Time Seen by Provider: 01/23/18 14:31 History Source: Patient Exam Limitations: No Limitations - History of Present Illness Initial Comments: 01/23/18 15:41 Patient is a 67F with history of HTN, HLD, DM here today complaining of dizziness. Patient describes her "dizziness" as weakness and a feeling of just wanting to do back to bed. She states this is not like her prior issues with vertigo when she was suddenly unable to move without exacerbating her vertigo. She denies fevers, chills, nausea, vomiting. Denies cough, chest pain and shortness of breath. Denies dysuria, but states that she does have urinary frequency. Past History - Past Medical History Allergies/Adverse Reactions: Allergies Allergy/AdvReac Type Severity Reaction Status Date / Time propoxyphene HCl Allergy Swelling Verified 01/23/18 14:30 [From [facility]] Home Medications: Ambulatory Orders Aspirin [ASA -] 81 mg PO DAILY 05/08/12 Simvastatin [Zocor -] 20 mg PO HS 05/08/12 metFORMIN HCL [Glucophage] 1,000 mg PO BID 05/08/12 Losartan/Hydrochlorothiazide [Losartan-Hctz 50-12.5 mg Tab] 1 each PO DAILY 03/20 Salmeterol/Fluticasone [Advair 250Mcg/50Mcg -] 1 inh PO BID PRN 11/15/12 Albuterol Sulfate Inhaler - [Ventolin HFA Inhaler -] 2 inh PO Q4H PRN 07/24/16 Ferrous Sulfate/Licor Rt Ext [Maryam Allen Herbal Tablet] 75 mg PO TIDCM Naproxen [Naprosyn -] 500 mg PO BID PRN 07/24/16 Miscellaneous Medical Supply [Glucometer Device] 1 each .ROUTE ASDIR #1 kit Asthma: Yes (seasonal allergy,sleep apnea) Cancer: No Cardiac Disorders: No CVA: No COPD: No DVT: No Diabetes: Yes (niddm) HTN: Yes Hypercholesterolemia: Yes - Surgical History Orthopedic Surgery: Yes (left hip replacement) - Immunization History Td Vaccination: Yes TDAP Vaccination: Yes Immunization Up to Date: Yes - Suicide/Smoking/Psychosocial Hx Smoking Status: Yes Smoking History: Former smoker Years of Tobacco Use: 10 Have you smoked in the past 12 months: No Number of Cigarettes Smoked Daily: 0 If you are a former smoker, when did you quit?: 1995 Cigars Per Day: 0 Information on smoking cessation initiated: No Hx Alcohol Use: No Drug/Substance Use Hx: No Substance Use Type: None Hx Substance Use Treatment: No Review of Systems - Review of Systems Comments:: 01/23/18 15:49 GENERAL/CONSTITUTIONAL: No fever or chills. +weakness. HEAD, EYES, EARS, NOSE AND THROAT: No change in vision. No sore throat. CARDIOVASCULAR: No chest pain or shortness of breath RESPIRATORY: No cough, wheezing, or hemoptysis. GASTROINTESTINAL: No nausea, vomiting, diarrhea or constipation. GENITOURINARY: No dysuria, +frequency MUSCULOSKELETAL: No joint or muscle swelling or pain. No neck or back pain. SKIN: No rash NEUROLOGIC: No headache, vertigo, loss of consciousness, or change in strength/ sensation. ENDOCRINE: No increased thirst. No abnormal weight change HEMATOLOGIC/LYMPHATIC: No anemia, easy bleeding, or history of blood clots. ALLERGIC/IMMUNOLOGIC: No hives or skin allergy. *Physical Exam - Vital Signs Last Vital Signs Temp Pulse Resp BP Pulse Ox 100.4 F H 114 H 18 160/82 98 01/23/18 14:30 01/23/18 14:30 01/23/18 14:30 01/23/18 14:30 01/23/18 14:30 - Physical Exam Comments: 01/23/18 15:49 GENERAL: Awake, alert, and fully oriented, in no acute distress HEAD: No signs of trauma, normocephalic, atraumatic EYES: PERRLA, EOMI, sclera anicteric, conjunctiva clear ENT: Auricles normal inspection, hearing grossly normal, nares patent, oropharynx clear without exudates. Moist mucosa NECK: Normal ROM, supple, no lymphadenopathy, JVD, or masses LUNGS: No distress, speaks full sentences, clear to auscultation bilaterally HEART: Tachycardic, regular, rhythm, normal S1 and S2, no murmurs, rubs or gallops, peripheral pulses normal and equal bilaterally. ABDOMEN: Soft, nontender, normoactive bowel sounds. No guarding, no rebound. No masses EXTREMITIES: Normal inspection, Normal range of motion, no edema. No clubbing or cyanosis. NEUROLOGICAL: Cranial nerves II through XII grossly intact. Normal speech, normal gait with cane, no focal sensorimotor deficits SKIN: Warm, Dry, normal turgor, no rashes or lesions noted. ED Treatment Course - LABORATORY CBC & Chemistry Diagram: 01/23/18 15:00 01/23/18 15:00 - ADDITIONAL ORDERS Additional order review: Laboratory Results 01/23/18 15:00 PT with INR 10.00 INR 0.88 01/23/18 15:00 RBC 4.75 MCV 86.5 MCHC 34.0 RDW 13.2 MPV 8.0 Neutrophils % 59.5 Lymphocytes % 24.9 D Monocytes % 9.9 Eosinophils % 4.9 H Basophils % 0.8 Medical Decision Making - Medical Decision Making 01/23/18 15:50 Patient is a 67F with history of HTN, HLD, DM here today with weakness, fever, tachycardia. Septic workup initiated, added vbg and acetone for possible DKA. Believe source is likely UTI, also considering pneumonia and bacteremia. EKG shows sinus tachycardia with rate of 122. No st elevations/depressions. No significant t wave abnormalities. Normal axis. Normal intervals. CXR shows no acute cardiopulmonary process. 01/23/18 17:04 CBC normal. CMP reassuring. Lactate elevated to 3.3. UA clear. CXR clear. Patient septic with no clear source, will treat with vanc/zosyn. Will admit. 01/23/18 17:21 Case d/w Dr Caban, will admit to med/surg. *DC/Admit/Observation/Transfer Diagnosis at time of Disposition: Sepsis - Discharge Dispostion Condition at time of disposition: Stable Decision to Admit order: Yes - Referrals Referrals: Kimberly Umaña MD [Primary Care Provider] - - Patient Instructions - Post Discharge Activity
[2018-01-23 16:16] LABS: VENOUS PH 7.38 (7.32-7.42); VENOUS PO2 30.7 mmHg (28-48)
[2018-01-23] MEDS ORDERED: ACETAMINOPHEN INJECTION 100 ML IVPB ONE (16:27)
[2018-01-23 16:59] LABS: URINE APPEARANCE CLEAR; URINE BILIRUBIN NEGATIVE (<2.0 mg/dL); URINE COLOR STRAW; URINE GLUCOSE (UA) NEGATIVE (NEGATIVE); URINE KETONE NEGATIVE (NEGATIVE); URINE LEUK ESTERASE NEGATIVE (NEGATIVE); URINE NITRITE NEGATIVE (NEGATIVE); URINE PROTEIN NEGATIVE (NEGATIVE); URINE UROBILINOGEN NEGATIVE mg/dL (0.2-1.0)
[2018-01-23] MEDS ORDERED: PIPERACILLIN/TAZOB 3.375 GM 3.375 GM in DEXTROSE 5%-WATER - 50 ML IVPB ONE (17:03)
[2018-01-23] MEDS ORDERED: VANCOMYCIN 1,000 MG in DEXTROSE 5%-WATER - 250 ML IVPB ONE (17:03)
[2018-01-23] MEDS ORDERED: VANCOMYCIN 1 GRAM (PRE-DOCKED) 1,000 MG/250 ML BAG IVPB ONE (17:46)
[2018-01-23] MEDS ORDERED: PIPERACILLIN/TAZOB 3.375 GM 3.375 GM/50 ML BAG IVPB ONE (17:47)
[2018-01-23 19:53] VITALS: BMI 27.9
[2018-01-23] MEDS: ACETAMINOPHEN 325 MG TABLET (FP) PO PRN (21:54)
[2018-01-24] MEDS ORDERED: PIPERACILLIN/TAZOBACTAM 3.375 GM VIAL IVPB ONE ×2 (01:02→09:34)
[2018-01-24] MEDS ORDERED: DEXTROSE 5%-WATER - 50 ML IVPB ONE ×3 (01:02→13:02)
[2018-01-24] MEDS: PIPERACILLIN/TAZOB 3.375 GM 3.375 GM in DEXTROSE 5%-WATER - 50 ML IVPB SCH ×2 (01:39→09:40)
[2018-01-24] MEDS ORDERED: PIPERACILLIN/TAZOB 3.375 GM 3.375 GM in DEXTROSE 5%-WATER - 50 ML IVPB SCH (02:00)
[2018-01-24] MEDS: metFORMIN HCL 500 MG TABLET (FP) PO SCH ×2 (06:17→16:22)
[2018-01-24 07:39] LABS: BASO % 1.3 % (0-2.0); EOS % 9.5 % (0-4.5); HEMATOCRIT 37.3 % (32.4-45.2); HEMOGLOBIN 12.5 GM/dL (10.7-15.3); LYMPH % 46.7 % (8-40); MCH 29.4 pg (25.7-33.7); MCHC 33.6 g/dl (32.0-36.0); MEAN CELL VOLUME 87.3 fl (80-96); MEAN PLT VOLUME 8.1 fl (7.5-11.1); MONO % 10.6 % (3.8-10.2); NEUT % 31.9 % (42.8-82.8); PLATELET COUNT 290 K/MM3 (134-434); RBC 4.27 M/mm3 (3.60-5.2); RDW 12.9 % (11.6-15.6); WHITE BLOOD COUNT 4.4 K/mm3 (4.0-10.0)
[2018-01-24 08:24] LABS: CHLORIDE 107 mmol/L (98-107); POTASSIUM 4.3 mmol/L (3.5-5.1); SODIUM 140 mmol/L (136-145)
[2018-01-24 08:43] LABS: ALBUMIN 3.6 g/dl (3.4-5.0); ALK PHOS 87 U/L (45-117); ANION GAP 8 MMOL/L (8-16); BILIRUBIN,TOTAL 0.7 mg/dL (0.2-1); BLOOD UREA NITROGEN 13 mg/dL (7-18); CO2 25 mmol/L (21-32); CREATININE 0.9 mg/dL (0.55-1.3); GLUCOSE,RANDOM 121 mg/dL (74-106); SGOT/AST 20 U/L (15-37); SGPT/ALT 30 U/L (13-61); TOT PROT 7.2 g/dl (6.4-8.2)
--- NOTE | 2018-01-24 09:23 | CONSULT ---
Consult - text type - Consultation Consultation Note: Neurology History of Present Illness 67F with history of HTN, HLD, DM here today complaining of dizziness. Patient describes her "dizziness" as weakness and a feeling of just wanting to do back to bed. She states this is not like her prior issues with vertigo when she was suddenly unable to move without exacerbating her vertigo. She denies fevers, chills, nausea, vomiting. Denies cough, chest pain and shortness of breath. Denies dysuria, but states that she does have urinary frequency. She is known by me from previously being seen at [facility] (prior to me seen by Dr. Emery). Most recent MRI brain was in 04/23 which I reviewed and no acute changes. Chronic white matter disease. For this admission no imaging completed and will order CT head. Patient in agreement with this. Improved this AM and appears at baseline. Is getting infectious/sepsis work up due to fever and tachycardia though not ill appearing. Past History - Past Medical History Allergies/Adverse Reactions: Allergies Allergy/AdvReac Type Severity Reaction Status Date / Time propoxyphene HCl Allergy Swelling Verified 01/23/18 14:30 [[facility] Home Medications: Ambulatory Orders Aspirin [ASA -] 81 mg PO DAILY 05/08/12 Simvastatin [Zocor -] 20 mg PO HS 05/08/12 metFORMIN HCL [Glucophage] 1,000 mg PO BID 05/08/12 Losartan/Hydrochlorothiazide [Losartan-Hctz 50-12.5 mg Tab] 1 each PO DAILY 03/20 Salmeterol/Fluticasone [Advair 250Mcg/50Mcg -] 1 inh PO BID PRN 11/15/12 Albuterol Sulfate Inhaler - [Ventolin HFA Inhaler -] 2 inh PO Q4H PRN 07/24/16 Ferrous Sulfate/Licor Rt Ext [Maryam Allen Herbal Tablet] 75 mg PO TIDCM Naproxen [Naprosyn -] 500 mg PO BID PRN 07/24/16 Miscellaneous Medical Supply [Glucometer Device] 1 each .ROUTE ASDIR #1 kit Asthma: Yes (seasonal allergy,sleep apnea) Cancer: No Cardiac Disorders: No CVA: No COPD: No DVT: No Diabetes: Yes (niddm) HTN: Yes Hypercholesterolemia: Yes - Surgical History Orthopedic Surgery: Yes (left hip replacement) - Immunization History Td Vaccination: Yes TDAP Vaccination: Yes Immunization Up to Date: Yes - Suicide/Smoking/Psychosocial Hx Smoking Status: Yes Smoking History: Former smoker Years of Tobacco Use: 10 Have you smoked in the past 12 months: No Number of Cigarettes Smoked Daily: 0 If you are a former smoker, when did you quit?: 1995 Cigars Per Day: 0 Information on smoking cessation initiated: No Hx Alcohol Use: No Drug/Substance Use Hx: No Substance Use Type: None Hx Substance Use Treatment: No Review of Systems GENERAL/CONSTITUTIONAL: No fever or chills. +weakness. HEAD, EYES, EARS, NOSE AND THROAT: No change in vision. No sore throat. CARDIOVASCULAR: No chest pain or shortness of breath RESPIRATORY: No cough, wheezing, or hemoptysis. GASTROINTESTINAL: No nausea, vomiting, diarrhea or constipation. GENITOURINARY: No dysuria, +frequency MUSCULOSKELETAL: No joint or muscle swelling or pain. No neck or back pain. SKIN: No rash NEUROLOGIC: No headache, vertigo, loss of consciousness, or change in strength/ sensation. ENDOCRINE: No increased thirst. No abnormal weight change HEMATOLOGIC/LYMPHATIC: No anemia, easy bleeding, or history of blood clots. ALLERGIC/IMMUNOLOGIC: No hives or skin allergy. *Physical Exam Vital Signs Period Temp Pulse Resp BP Sys/Rojas Pulse Ox Last 24 Hr 97.5 F-100.4 F 60-114 18-22 115-160/70-88 98-98 GENERAL: Awake, alert, and fully oriented, in no acute distress HEAD: No signs of trauma, normocephalic, atraumatic EYES: PERRLA, EOMI, sclera anicteric, conjunctiva clear ENT: Auricles normal inspection, hearing grossly normal, nares patent, oropharynx clear without exudates. Moist mucosa NECK: Normal ROM, supple, no lymphadenopathy, JVD, or masses LUNGS: No distress, speaks full sentences, clear to auscultation bilaterally HEART: Tachycardic, regular, rhythm, normal S1 and S2, no murmurs, rubs or gallops, peripheral pulses normal and equal bilaterally. ABDOMEN: Soft, nontender, normoactive bowel sounds. No guarding, no rebound. No masses EXTREMITIES: Normal inspection, Normal range of motion, no edema. No clubbing or cyanosis. NEUROLOGICAL: Cranial nerves II through XII grossly intact. Normal speech, normal gait with cane, no focal sensorimotor deficits SKIN: Warm, Dry, normal turgor, no rashes or lesions noted. CBCD WBC 4.4 K/mm3 (4.0-10.0) 01/24/18 06:30 RBC 4.27 M/mm3 (3.60-5.2) 01/24/18 06:30 Hgb 12.5 GM/dL (10.7-15.3) 01/24/18 06:30 Hct 37.3 % (32.4-45.2) 01/24/18 06:30 MCV 87.3 fl (80-96) 01/24/18 06:30 MCHC 33.6 g/dl (32.0-36.0) 01/24/18 06:30 RDW 12.9 % (11.6-15.6) 01/24/18 06:30 Plt Count 290 K/MM3 (134-434) 01/24/18 06:30 MPV 8.1 fl (7.5-11.1) 01/24/18 06:30 CMP Sodium 140 mmol/L (136-145) 01/24/18 06:30 Potassium 4.3 mmol/L (3.5-5.1) 01/24/18 06:30 Chloride 107 mmol/L (98-107) 01/24/18 06:30 Carbon Dioxide 25 mmol/L (21-32) 01/24/18 06:30 Anion Gap 8 MMOL/L (8-16) 01/24/18 06:30 BUN 13 mg/dL (7-18) 01/24/18 06:30 Creatinine 0.9 mg/dL (0.55-1.3) 01/24/18 06:30 Creat Clearance w eGFR > 60 (>60) 01/24/18 06:30 Random Glucose 121 mg/dL (74-106) H 01/24/18 06:30 Calcium 9.0 mg/dL (8.5-10.1) 01/24/18 06:30 Total Bilirubin 0.7 mg/dL (0.2-1) 01/24/18 06:30 AST 20 U/L (15-37) 01/24/18 06:30 ALT 30 U/L (13-61) 01/24/18 06:30 Alkaline Phosphatase 87 U/L (45-117) 01/24/18 06:30 Total Protein 7.2 g/dl (6.4-8.2) 01/24/18 06:30 Albumin 3.6 g/dl (3.4-5.0) 01/24/18 06:30 CARDIAC ENZYMES Creatine Kinase 110 IU/L (26-192) 01/23/18 15:00 Troponin I < 0.02 ng/ml (0.00-0.05) 01/23/18 15:00 Imaging as above Medical Decision Making 67F with history of HTN, HLD, DM here today complaining of dizziness. Patient describes her "dizziness" as weakness and a feeling of just wanting to do back to bed. She states this is not like her prior issues with vertigo when she was suddenly unable to move without exacerbating her vertigo. She denies fevers, chills, nausea, vomiting. Denies cough, chest pain and shortness of breath. Denies dysuria, but states that she does have urinary frequency. She is known by me from previously being seen at [facility] (prior to me seen by Dr. Emery). Most recent MRI brain was in 04/23 which I reviewed and no acute changes. Chronic white matter disease. For this admission no imaging completed and will order CT head. Patient in agreement with this. Improved this AM and appears at baseline. Is getting infectious/sepsis work up due to fever and tachycardia though not ill appearing. Continue ASA at current dose, remains on statin, can be continued. Monitor glucose, maintain euglycemic range. On Metformin. Increased hyrdation discussed and recommended.
[2018-01-24] MEDS ORDERED: MECLIZINE HCL 12.5 MG TABLET PO PRN (09:24)
[2018-01-24] MEDS: LOSARTAN POTASSIUM 50 MG TABLET (FP) PO SCH (09:39)
[2018-01-24] MEDS ORDERED: HYDROCHLOROTHIAZIDE 12.5 MG CAPSULE (FP) PO SCH (10:00)
--- NOTE | 2018-01-24 10:08 | PN ---
Progress Note, Physician Chief Complaint: Pt lying in bed No dizziness now Afebrile,tachycardia improved Lactic acid level 1.5 Neurology consult appreciated blood cul and urine cul pending - Current Medication List Current Medications: Active Medications Acetaminophen (Tylenol -) 650 mg PO Q6H PRN PRN Reason: FEVER Last Admin: 01/23/18 21:54 Dose: 650 mg Hydrochlorothiazide (Hctz -) 12.5 mg PO DAILY [facility] Last Admin: 01/24/18 09:39 Dose: 12.5 mg Piperacillin Sod/Tazobactam (Sod 3.375 gm/ Dextrose) 50 mls @ 100 mls/hr IVPB Q8H-IV [facility] Stop: 01/25/18 01:59 Last Admin: 01/24/18 09:40 Dose: 100 mls/hr Piperacillin Sod/Tazobactam (Sod 3.375 gm/ Dextrose) 50 mls @ 100 mls/hr IVPB Q8H-IV [facility] Losartan Potassium (Cozaar -) 50 mg PO DAILY [facility] Last Admin: 01/24/18 09:39 Dose: 50 mg Meclizine HCl (Antivert -) 12.5 mg PO TID PRN PRN Reason: VERTIGO Metformin HCl (Glucophage -) 500 mg PO BIDAC [facility] Last Admin: 01/24/18 06:17 Dose: 500 mg - Objective Vital Signs: Vital Signs Temperature 97.5 F L 01/24/18 06:52 Pulse Rate 60 01/24/18 06:52 Respiratory Rate 22 01/24/18 06:52 Blood Pressure 147/70 01/24/18 06:52 O2 Sat by Pulse Oximetry (%) 98 01/24/18 05:23 Constitutional: Yes: No Distress Eyes: Yes: Conjunctiva Clear HENT: Yes: Atraumatic, Normocephalic Neck: Yes: Supple, Trachea Midline Cardiovascular: Yes: Regular Rate and Rhythm Respiratory: Yes: Regular, CTA Bilaterally Gastrointestinal: Yes: Normal Bowel Sounds, Soft Musculoskeletal: Yes: WNL Extremities: Yes: WNL Edema: No Peripheral Pulses WNL: Yes Neurological: Yes: WNL, Alert ...Motor Strength: WNL Psychiatric: Yes: WNL, Alert Labs: CBC, BMP 01/24/18 06:30 01/24/18 06:30 INR, PTT INR 0.88 (0.83-1.09) 01/23/18 15:00 Laboratory Results - last 24 hr 01/23/18 01/23/18 01/23/18 15:00 15:00 15:00 WBC 5.8 RBC 4.75 Hgb 14.0 Hct 41.1 MCV 86.5 MCH 29.4 MCHC 34.0 RDW 13.2 Plt Count 356 MPV 8.0 Absolute Neuts (auto) 3.5 Neutrophils % 59.5 Lymphocytes % 24.9 D Monocytes % 9.9 Eosinophils % 4.9 H Basophils % 0.8 Nucleated RBC % 0 PT with INR 10.00 INR 0.88 VBG pH POC VBG pCO2 POC VBG pO2 Mixed VBG HCO3 Sodium 139 Potassium 3.8 Chloride 104 Carbon Dioxide 23 Anion Gap 12 BUN 17 Creatinine 1.0 Creat Clearance w eGFR 55.14 POC Glucometer Random Glucose 156 H Lactic Acid Calcium 8.6 Total Bilirubin 0.4 AST 20 ALT 39 Alkaline Phosphatase 112 Creatine Kinase 110 Troponin I < 0.02 Total Protein 8.6 H Albumin 4.9 Urine Color Urine Appearance Urine pH Ur Specific Laura Urine Protein Urine Glucose (UA) Urine Ketones Urine Blood Urine Nitrite Urine Bilirubin Urine Urobilinogen Ur Leukocyte Esterase Acetone, Qual Blood Type Antibody Screen 01/23/18 01/23/18 01/23/18 15:00 16:00 16:00 WBC RBC Hgb Hct MCV MCH MCHC RDW Plt Count MPV Absolute Neuts (auto) Neutrophils % Lymphocytes % Monocytes % Eosinophils % Basophils % Nucleated RBC % PT with INR INR VBG pH 7.38 POC VBG pCO2 47.0 POC VBG pO2 30.7 Mixed VBG HCO3 27.3 H Sodium Potassium Chloride Carbon Dioxide Anion Gap BUN Creatinine Creat Clearance w eGFR POC Glucometer Random Glucose Lactic Acid Calcium Total Bilirubin AST ALT Alkaline Phosphatase Creatine Kinase Troponin I Total Protein Albumin Urine Color Straw Urine Appearance Clear Urine pH 6.0 Ur Specific Laura 1.006 Urine Protein Negative Urine Glucose (UA) Negative Urine Ketones Negative Urine Blood Negative Urine Nitrite Negative Urine Bilirubin Negative Urine Urobilinogen Negative Ur Leukocyte Esterase Negative Acetone, Qual Blood Type A POSITIVE Antibody Screen Negative 01/23/18 01/23/18 01/23/18 16:00 18:38 20:45 WBC RBC Hgb Hct MCV MCH MCHC RDW Plt Count MPV Absolute Neuts (auto) Neutrophils % Lymphocytes % Monocytes % Eosinophils % Basophils % Nucleated RBC % PT with INR INR VBG pH POC VBG pCO2 POC VBG pO2 Mixed VBG HCO3 Sodium Potassium Chloride Carbon Dioxide Anion Gap BUN Creatinine Creat Clearance w eGFR POC Glucometer Random Glucose Lactic Acid 3.3 H* 1.5 Calcium Total Bilirubin AST ALT Alkaline Phosphatase Creatine Kinase Troponin I Total Protein Albumin Urine Color Urine Appearance Urine pH Ur Specific Laura Urine Protein Urine Glucose (UA) Urine Ketones Urine Blood Urine Nitrite Urine Bilirubin Urine Urobilinogen Ur Leukocyte Esterase Acetone, Qual Negative L Blood Type Antibody Screen 01/23/18 01/23/18 01/24/18 20:45 21:03 05:52 WBC RBC Hgb Hct MCV MCH MCHC RDW Plt Count MPV Absolute Neuts (auto) Neutrophils % Lymphocytes % Monocytes % Eosinophils % Basophils % Nucleated RBC % PT with INR INR VBG pH POC VBG pCO2 POC VBG pO2 Mixed VBG HCO3 Sodium Potassium Chloride Carbon Dioxide Anion Gap BUN Creatinine Creat Clearance w eGFR POC Glucometer 140 116 Random Glucose Lactic Acid Calcium Total Bilirubin AST ALT Alkaline Phosphatase Creatine Kinase Troponin I Total Protein Albumin Urine Color Urine Appearance Urine pH Ur Specific Laura Urine Protein Urine Glucose (UA) Urine Ketones Urine Blood Urine Nitrite Urine Bilirubin Urine Urobilinogen Ur Leukocyte Esterase Acetone, Qual Blood Type A POSITIVE Antibody Screen 01/24/18 01/24/18 06:30 06:30 WBC 4.4 RBC 4.27 Hgb 12.5 Hct 37.3 MCV 87.3 MCH 29.4 MCHC 33.6 RDW 12.9 Plt Count 290 MPV 8.1 Absolute Neuts (auto) 1.4 L Neutrophils % 31.9 L D Lymphocytes % 46.7 H D Monocytes % 10.6 H Eosinophils % 9.5 H D Basophils % 1.3 Nucleated RBC % 0 PT with INR INR VBG pH POC VBG pCO2 POC VBG pO2 Mixed VBG HCO3 Sodium 140 Potassium 4.3 Chloride 107 Carbon Dioxide 25 Anion Gap 8 BUN 13 Creatinine 0.9 Creat Clearance w eGFR > 60 POC Glucometer Random Glucose 121 H Lactic Acid Calcium 9.0 Total Bilirubin 0.7 AST 20 ALT 30 Alkaline Phosphatase 87 Creatine Kinase Troponin I Total Protein 7.2 Albumin 3.6 Urine Color Urine Appearance Urine pH Ur Specific Laura Urine Protein Urine Glucose (UA) Urine Ketones Urine Blood Urine Nitrite Urine Bilirubin Urine Urobilinogen Ur Leukocyte Esterase Acetone, Qual Blood Type Antibody Screen - ....Imaging Chest X-ray: Report Reviewed Assessment/Plan dizziness,weakness FEVER,elevated lactic acid level Tachycardia ?r/o sepsis DM,HTN PLAN continue home meds Will f/u urine and BLOOD cul Cardiology and ID consult pending Continue antibiotics FOR ct head
[2018-01-24] MEDS: ACETAMINOPHEN 325 MG TABLET (FP) PO PRN (11:00)
--- NOTE | 2018-01-24 12:36 | PN ---
Progress Note (short form) - Note Progress Note: ID consult imp/reccd dizziness/lightheadedness since Monday had a low grade temp in ED that has resolved no source on exam, patient feels well except for the lightheadedness which she has had intermittently for several years- takes meclizine and it usually resolves ran out of meclizine at home and wasnt able to take it ?chronic sinusitis changes on CT scan unchanged from 2017- consider ENT eval- switch to rocephin for sinusitis management per neurology Problem List - Problems (1) Lightheaded Code(s): R42 - DIZZINESS AND GIDDINESS (2) Sinusitis Code(s): J32.9 - CHRONIC SINUSITIS, UNSPECIFIED
[2018-01-24] MEDS ORDERED: cefTRIAXone SODIUM 1 GM VIAL ONE (13:02)
[2018-01-24] MEDS: CEFTRIAXONE 1 GM in DEXTROSE 5%-WATER - 50 ML IVPB SCH (13:03)
--- NOTE | 2018-01-24 13:38 | EKG ---
Test Reason : Blood Pressure : / mmHG Vent. Rate : 122 BPM Atrial Rate : 122 BPM P-R Int : 140 ms QRS Dur : 062 ms QT Int : 334 ms P-R-T Axes : 041 -08 029 degrees QTc Int : 475 ms SINUS TACHYCARDIA OTHERWISE NORMAL ECG WHEN COMPARED WITH ECG OF 24-JUL-2016 10:00, NO SIGNIFICANT CHANGE WAS FOUND Confirmed by FAN GOODMAN MD ([id number]) on 01/24/2018 1:37:44 PM Referred By: Confirmed By:FAN GOODMAN MD
--- NOTE | 2018-01-24 16:47 | CON.CARD ---
Consult Consult Specialty:: Cardiology Referred by:: Kimberly Umaña MD Reason for Consultation:: Light-headedness - History of Present Illness Chief Complaint: Light-headedness History of Present Illness: 67 F with h/o HTN presenting to ED with lightheadedness with low grade fever starting 3 days ago. She reports feeling very weak, stating that all she does is eat and lie in bed. Pt denies room-spinning sensation. Denies CP/SOB, true syncope, palpitations. Endorses fatigue. Denies subjective fevers/chills though found to be febrile in ED. Denies cough. Denies N/V/D. Denies dysuria. - History Source History Provided By: Patient Limitations to Obtaining History: No Limitations - Past Medical History Cardio/Vascular: Yes: HTN, Hyperlipdemia Pulmonary: Yes: Asthma, Sleep Apnea Musculoskeletal: Yes: Osteoarthritis Endocrine: Yes: Other (pituitary tumor) - Alcohol/Substance Use Hx Alcohol Use: No History of Substance Use: reports: None - Smoking History Smoking history: Former smoker Have you smoked in the past 12 months: No Aproximately how many cigarettes per day: 0 If you are a former smoker, when did you quit?: 1995 - Social History ADL: Independent History of Recent Travel: No Home Medications - Allergies Allergies/Adverse Reactions: Allergies Allergy/AdvReac Type Severity Reaction Status Date / Time propoxyphene HCl Allergy Swelling Verified 01/23/18 14:30 [From Evin] - Home Medications Home Medications: Ambulatory Orders Aspirin [ASA -] 81 mg PO DAILY 05/08/12 Simvastatin [Zocor -] 20 mg PO HS 05/08/12 metFORMIN HCL [Glucophage] 500 mg PO BID 05/08/12 Losartan/Hydrochlorothiazide [Losartan-Hctz 50-12.5 mg Tab] 1 each PO DAILY 03/20 Salmeterol/Fluticasone [Advair 250Mcg/50Mcg -] 1 inh PO BID PRN 11/15/12 Albuterol Sulfate Inhaler - [Ventolin HFA Inhaler -] 2 inh PO Q4H PRN 07/24/16 Ferrous Sulfate/Licor Rt Ext [Maryam Allen Herbal Tablet] 75 mg PO TIDCM Naproxen [Naprosyn -] 500 mg PO BID PRN 07/24/16 Miscellaneous Medical Supply [Glucometer Device] 1 each .ROUTE ASDIR #1 kit Family Disease History - Family Disease History Family Disease History: Diabetes: Father, Mother Review of Systems - Review of Systems Neck: reports: No Symptoms Cardiovascular: reports: No Symptoms Respiratory: reports: No Symptoms Gastrointestinal: reports: No Symptoms Genitourinary: reports: No Symptoms Breasts: reports: No Symptoms Reported Musculoskeletal: reports: No Symptoms Integumentary: reports: No Symptoms Neurological: reports: Dizziness Endocrine: reports: No Symptoms Hematology/Lymphatic: reports: No Symptoms Vital Signs: Vital Signs Temperature 98.8 F 01/24/18 14:56 Pulse Rate 81 01/24/18 14:56 Respiratory Rate 18 01/24/18 14:56 Blood Pressure 113/70 01/24/18 14:56 O2 Sat by Pulse Oximetry (%) 99 01/24/18 09:00 Constitutional: Yes: No Distress, Calm Neck: Yes: Supple Respiratory: Yes: Regular, CTA Bilaterally Gastrointestinal: Yes: Normal Bowel Sounds, Soft Cardiovascular: Yes: Regular Rate and Rhythm JVD: No Carotid Bruit: No Heart Sounds: Yes: S1, S2 Edema: No - Other Data Labs, Other Data: CBC, BMP 01/24/18 06:30 01/24/18 06:30 INR, PTT INR 0.88 (0.83-1.09) 01/23/18 15:00 ST @ 122 Imaging - Results Chest X-ray: Report Reviewed (NAD) Cat Scan: Report Reviewed (HCT No acute changes) Problem List - Problems (1) Hypertension Code(s): I10 - ESSENTIAL (PRIMARY) HYPERTENSION Qualifiers: Hypertension type: essential hypertension Qualified Code(s): I10 - Essential (primary) hypertension (2) Hyperlipidemia associated with type 2 diabetes mellitus Code(s): E11.69 - TYPE 2 DIABETES MELLITUS WITH OTHER SPECIFIED COMPLICATION; E78.5 - HYPERLIPIDEMIA, UNSPECIFIED (3) Sinusitis Code(s): J32.9 - CHRONIC SINUSITIS, UNSPECIFIED Qualifiers: Sinusitis location: unspecified location (4) Lightheaded Code(s): R42 - DIZZINESS AND GIDDINESS Assessment/Plan 1. Near without true syncope 2. H/o vertigo, ? chronic sinusitis 3. HTN/HCVD 4. Hyperlipidemia 5. Type 2 DM 6. COPD P:1. Check orthostatic vital signs, TSH, lipid panel, Ha1c 2. Echocardiogram to assess ventricular and valve fxn 3. Continue ASA 81 qd, Zocor 20 qhs, losartan 50 qd, d/c HCTZ 12.5 qd 4. Empiric abx course for sinusitis per ID 5. Thank you for consultative opportunity
[2018-01-24] MEDS ORDERED: ATORVASTATIN CA 10 MG TABLET (FP) PO SCH (22:00)
--- NOTE | 2018-01-24 22:46 | CONS ---
DATE OF CONSULTATION: 01/24/2018 INFECTIOUS DISEASE CONSULTATION REQUESTING PHYSICIAN: Kimberly Umaña M.D. CONSULTING PHYSICIAN: Edna Neal M.D. HISTORY OF PRESENT ILLNESS: This is a 67-year-old woman, presented to the emergency room with lightheadedness. This started on Monday. She recalls having this lightheaded sensation that she had had the previous month. She has had this several times in the past and usually takes meclizine, with which it resolves. Unfortunately, she had run out of her meclizine and did not have any available. Her appetite was poor through the weekend, and she felt very weak, and she stayed in bed. She denies true vertigo but does state the sensation resolves with taking the meclizine. She has been seen by in the past and had imaging studies without a real explanation as to this. She has seen ENT in the past as well. She called her doctor, who referred her to the emergency room. She came to the ER where she was found to have a low grade temperature of 100.4 and her heart rate was 114, she was admitted for further evaluation. She was given Zosyn in the emergency room as well as vancomycin for possible sepsis. I am asked to see her for further evaluation. She reports she still has the sensation. She is being evaluated by neurology and was ordered a head CT, and she is to be seen by cardiology as well. She denies any change in her cough which she describes as a chronic cough that she has had for years. She denies any dysuria or diarrhea. She reports having a good appetite. She reports that she is quite active and is very busy at baseline and is requesting meclizine. She has no complaints of chest pain, abdominal pain. She denies fevers and chills. PAST MEDICAL HISTORY: Notable for history of hypertension, hyperlipidemia, asthma, sleep apnea, osteoarthritis, pituitary tumor. She is a former smoker. She quit in 1995. There is no history of any substance use. 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 SOCIAL HISTORY: She lives alone, as noted before is quite active in her activities. Her last travel was about 6 weeks ago, [facility] [place] [facility] her sister. REVIEW OF SYSTEMS: Notable for the chronic cough, and she has been feeling off balance as she describes it for the last 3-4 days. ALLERGIES: PROPOXYPHENE. MEDICATION: At home include aspirin, ferrous sulfate, albuterol inhaler, metformin, losartan, hydrochlorothiazide, simvastatin, Advair. FAMILY HISTORY: Noncontributory. REVIEW OF SYSTEMS: As previously stated. PHYSICAL EXAMINATION: VITAL SIGNS: Current temperature is 98.8, pulse 81, blood pressure 113/70, respiratory rate 18. HEENT: Normocephalic. Eyes are anicteric. NECK: Supple. LUNGS: Clear to auscultation. HEART: Regular rate and rhythm. ABDOMEN: Soft, nontender. EXTREMITIES: Without edema. LABORATORY: White count on admission is 5.8, today is 4.4. Hemoglobin 12.5, platelets 290. She has 9.5% eosinophils. Her INR is 0.8. BUN and creatinine are 13 and 0.9 today, on admission was 17 and 1 with a lactic acid of 3.3 that subsequently resolved with fluids. LFTs are normal. Urinalysis is negative. Cultures are pending. She had a head CT that was just done that shows no evidence of acute pathology but does show right frontal, right anterior ethmoid sinus disease, unchanged from 2017. She had a chest x-ray done that was unremarkable. IMPRESSION: 1. In summary, this is a 67-year-old woman who complains of lightheadedness, dizziness on Monday. She had a low grade temperature in the emergency room that is resolved. There really is no source for her fever on exam. Patient feels well except for the lightheadedness, which she has had intermittently for several years. She takes meclizine which usually resolves it. Of note, on CAT scan she has some chronic sinusitis changes. Perhaps this is playing a role in her symptomatology. Would consider ENT evaluation. Could switch to ceftriaxone for sinusitis. Further management per neurology. 2. History diabetes. 3. History asthma. Further recommendations to follow. EDNA NEAL M.D. [id number]
[2018-01-25] MEDS: metFORMIN HCL 500 MG TABLET (FP) PO SCH (06:26)
--- NOTE | 2018-01-25 08:27 | HP ---
DATE OF ADMISSION: 01/23/2018 DATE OF DICTATION: 01/24/2018 This is a 67-year-old female with a history of hypertension, hyperlipidemia, diabetes, who came to the emergency room with the complaints of dizziness. Patient described her dizziness as weakness and a feeling of wanting to go back to bed. She had a history of vertigo in the past and this felt different than the normal one. She denies any fever or chills, nausea, vomiting, cough, chest pain, shortness of breath. Patient has a history of chronic sinusitis. Patient also complains of fatigue. No nausea, no vomiting. PAST MEDICAL HISTORY: History of hypertension, hyperlipidemia, recurrent sinusitis, diabetes, asthma, and osteoarthritis. ALLERGIES: PROPOXYPHENE, HYDROCHLORIDE. MEDICATIONS: Aspirin, simvastatin 10 mg, metformin 1000 mg b.i.d., losartan/hydrochlorothiazide 50/12.5 mg daily, Advair, Albuterol, ferrous sulfate, naproxen for arthritis. SURGICAL HISTORY: History of left total hip replacement. PERSONAL HISTORY: Patient is a former smoker, 10 years of smoking. Patient quit smoking in 1995. No history of drug abuse. REVIEW OF SYSTEMS: Constitutional: No fever, no chills. Head and Neck: No change in vision. Patient had a history of dizziness in the past. Cardiovascular: History of hypertension, hyperlipidemia. No chest pain, nausea, or shortness of breath. Respiratory: No cough, wheezing, or hemoptysis. Gastrointestinal: No nausea, no vomiting, no diarrhea. Genitourinary: No dysuria. No frequency. Musculoskeletal: No joint or muscle swelling or pain. Neurologic: No headache. Endocrine: History of diabetes, now increased dose. PHYSICAL EXAMINATION: Vital Signs: Temperature 100.4, pulse rate of 114, respirations 18, blood pressure 160/82, pulse oximetry 98%. General: Patient is awake, alert, oriented. Head and Neck: Pupils are equal and react to light and accommodation. Ears are normal. Throat is normal. Neck: Full range of movement. Supple. No JVD. Chest: Clear. Cardiovascular: First and second sounds are normal. Abdomen: Soft and nontender. Active bowel sounds. No guarding, no rigidity. Extremities: Normal. Inspection revealed full range of motion. Neurologic: Cranial nerves II-XII are grossly intact. Normal speech, normal gait. No facial or sensory motor deficits. Skin: Normal. LABORATORY: CBC: Normal. WBC 5.8, hemoglobin 14, hematocrit 41.1, platelets 356. Comprehensive panel: Sodium 139, potassium 3.8, chloride 104, bicarbonate 23, BUN 17, creatinine 1, 156, PT/INR normal. Chest x-ray: Normal. Lactate level was 3.3 in the emergency room and the urine was clear. EKG showed sinus tachycardia with a rate of 122. No ST or T-wave elevation. No significant ST or T-wave abnormalities. IMPRESSION: Patient is a 67-year-old female with a history of hypertension, hyperlipidemia, diabetes, who came to the emergency room with weakness, fever, and dizziness. In the emergency room, the patient was tachycardic and febrile. Lactic acid was 3.3, so admitted for septic workup and to find out the case for the dizziness. PLAN: Patient admitted to the floor. IV antibiotics. Patient was given, in the ER, Vancomycin and Zosyn. ID consultation. Urologic consultation. Cardiology consultation was called. Patient was started on home medication and is stable on the floor. Sky [id number]
--- NOTE | 2018-01-25 08:57 | PN ---
Progress Note (short form) - Note Progress Note: Neurology History of Present Illness 67F with history of HTN, HLD, DM complaining of dizziness. Patient describes her "dizziness" as weakness and a feeling of just wanting to go back to bed. She states this is not like her prior issues with vertigo when she was suddenly unable to move without exacerbating her vertigo. She denies fevers, chills, nausea, vomiting. Denies cough, chest pain and shortness of breath. Denies dysuria, but states that she does have urinary frequency. She is known by me from previously being seen at [facility] (prior to me seen by Dr. Emery). Most recent MRI brain was in 04/23 which I reviewed and no acute changes. Chronic white matter disease. CT head reviewed, negative for acute changes. Meclezine started and found to be very helpful. Improved this AM and appears at baseline. Discussed with PCP and plan for discharge today. Getting echo at bedside. Allergies/Adverse Reactions: Allergies Allergy/AdvReac Type Severity Reaction Status Date / Time propoxyphene HCl Allergy Swelling Verified 01/23/18 14:30 [From Darvon] Active Medications Acetaminophen (Tylenol -) 650 mg PO Q6H PRN PRN Reason: FEVER Last Admin: 01/24/18 11:00 Dose: 650 mg Aspirin (Asa -) 81 mg PO DAILY [facility] Atorvastatin Calcium (Lipitor -) 10 mg PO HS [facility] Last Admin: 01/24/18 21:11 Dose: 10 mg Ceftriaxone Sodium 1 gm/ (Dextrose) 50 mls @ 100 mls/hr IVPB DAILY [facility]; Protocol Last Admin: 01/24/18 13:03 Dose: 100 mls/hr Losartan Potassium (Cozaar -) 50 mg PO DAILY [facility] Last Admin: 01/24/18 09:39 Dose: 50 mg Meclizine HCl (Antivert -) 12.5 mg PO TID PRN PRN Reason: VERTIGO Last Admin: 01/24/18 21:11 Dose: 12.5 mg Metformin HCl (Glucophage -) 500 mg PO BIDAC [facility] Last Admin: 01/25/18 06:26 Dose: 500 mg *Physical Exam Vital Signs Period Temp Pulse Resp BP Sys/Rojas Pulse Ox Last 24 Hr 98.6 F-98.9 F 62-85 18-20 113-129/66-88 99-99 GENERAL: Awake, alert, and fully oriented, in no acute distress HEAD: No signs of trauma, normocephalic, atraumatic EYES: PERRLA, EOMI, sclera anicteric, conjunctiva clear ENT: Auricles normal inspection, hearing grossly normal, nares patent, oropharynx clear without exudates. Moist mucosa NECK: Normal ROM, supple, no lymphadenopathy, JVD, or masses LUNGS: No distress, speaks full sentences, clear to auscultation bilaterally HEART: Tachycardic, regular, rhythm, normal S1 and S2, no murmurs, rubs or gallops, peripheral pulses normal and equal bilaterally. ABDOMEN: Soft, nontender, normoactive bowel sounds. No guarding, no rebound. No masses EXTREMITIES: Normal inspection, Normal range of motion, no edema. No clubbing or cyanosis. NEUROLOGICAL: Cranial nerves II through XII grossly intact. Normal speech, normal gait with cane, no focal sensorimotor deficits SKIN: Warm, Dry, normal turgor, no rashes or lesions noted. CBCD WBC 4.4 K/mm3 (4.0-10.0) 01/24/18 06:30 RBC 4.27 M/mm3 (3.60-5.2) 01/24/18 06:30 Hgb 12.5 GM/dL (10.7-15.3) 01/24/18 06:30 Hct 37.3 % (32.4-45.2) 01/24/18 06:30 MCV 87.3 fl (80-96) 01/24/18 06:30 MCHC 33.6 g/dl (32.0-36.0) 01/24/18 06:30 RDW 12.9 % (11.6-15.6) 01/24/18 06:30 Plt Count 290 K/MM3 (134-434) 01/24/18 06:30 MPV 8.1 fl (7.5-11.1) 01/24/18 06:30 CMP Sodium 140 mmol/L (136-145) 01/24/18 06:30 Potassium 4.3 mmol/L (3.5-5.1) 01/24/18 06:30 Chloride 107 mmol/L (98-107) 01/24/18 06:30 Carbon Dioxide 25 mmol/L (21-32) 01/24/18 06:30 Anion Gap 8 MMOL/L (8-16) 01/24/18 06:30 BUN 13 mg/dL (7-18) 01/24/18 06:30 Creatinine 0.9 mg/dL (0.55-1.3) 01/24/18 06:30 Creat Clearance w eGFR > 60 (>60) 01/24/18 06:30 Random Glucose 121 mg/dL (74-106) H 01/24/18 06:30 Calcium 9.0 mg/dL (8.5-10.1) 01/24/18 06:30 Total Bilirubin 0.7 mg/dL (0.2-1) 01/24/18 06:30 AST 20 U/L (15-37) 01/24/18 06:30 ALT 30 U/L (13-61) 01/24/18 06:30 Alkaline Phosphatase 87 U/L (45-117) 01/24/18 06:30 Total Protein 7.2 g/dl (6.4-8.2) 01/24/18 06:30 Albumin 3.6 g/dl (3.4-5.0) 01/24/18 06:30 CARDIAC ENZYMES Creatine Kinase 110 IU/L (26-192) 01/23/18 15:00 Troponin I < 0.02 ng/ml (0.00-0.05) 01/23/18 15:00 Imaging as above Medical Decision Making 67F with history of HTN, HLD, DM here today complaining of dizziness. Patient describes her "dizziness" as weakness and a feeling of just wanting to do back to bed. She states this is not like her prior issues with vertigo when she was suddenly unable to move without exacerbating her vertigo. She denies fevers, chills, nausea, vomiting. Denies cough, chest pain and shortness of breath. Denies dysuria, but states that she does have urinary frequency. She is known by me from previously being seen at [facility] (prior to me seen by Dr. Emery). Most recent MRI brain was in 04/23 which I reviewed and no acute changes. Chronic white matter disease. CT head reviewed, negative for acute changes. Meclezine started and found to be very helpful. Improved this AM and appears at baseline. Follow up echo results. Continue ASA at current dose, remains on statin, can be continued. Monitor glucose, maintain euglycemic range. On Metformin. Increased hyrdation discussed and recommended. Discussed with primary
[2018-01-25] MEDS ORDERED: cefTRIAXone SODIUM 1 GM VIAL ONE (09:31)
[2018-01-25] MEDS ORDERED: DEXTROSE 5%-WATER - 50 ML IVPB ONE (09:32)
[2018-01-25] MEDS: CEFTRIAXONE 1 GM in DEXTROSE 5%-WATER - 50 ML IVPB SCH (09:40)
[2018-01-25] MEDS: LOSARTAN POTASSIUM 50 MG TABLET (FP) PO SCH (09:40)
--- NOTE | 2018-01-25 09:42 | PN ---
Progress Note, Physician Chief Complaint: Pt lying in bed No complaints today CT head negative Afebrile, Lactic acid level 1.5 Neurology consult appreciated blood cul and urine cul negative ID rec antibiotics for chronic sinusitis and ent evaluation D/C home today - Current Medication List Current Medications: Active Medications Acetaminophen (Tylenol -) 650 mg PO Q6H PRN PRN Reason: FEVER Last Admin: 01/24/18 11:00 Dose: 650 mg Aspirin (Asa -) 81 mg PO DAILY [facility] Atorvastatin Calcium (Lipitor -) 10 mg PO HS [facility] Last Admin: 01/24/18 21:11 Dose: 10 mg Ceftriaxone Sodium 1 gm/ (Dextrose) 50 mls @ 100 mls/hr IVPB DAILY [facility]; Protocol Last Admin: 01/24/18 13:03 Dose: 100 mls/hr Losartan Potassium (Cozaar -) 50 mg PO DAILY [facility] Last Admin: 01/24/18 09:39 Dose: 50 mg Meclizine HCl (Antivert -) 12.5 mg PO TID PRN PRN Reason: VERTIGO Last Admin: 01/24/18 21:11 Dose: 12.5 mg Metformin HCl (Glucophage -) 500 mg PO BIDAC [facility] Last Admin: 01/25/18 06:26 Dose: 500 mg - Objective Vital Signs: Vital Signs Temperature 98.6 F 01/25/18 06:00 Pulse Rate 62 01/25/18 06:00 Respiratory Rate 20 01/25/18 06:00 Blood Pressure 128/72 01/25/18 06:00 O2 Sat by Pulse Oximetry (%) 99 01/24/18 21:00 Constitutional: Yes: No Distress Eyes: Yes: Conjunctiva Clear HENT: Yes: Atraumatic, Normocephalic Neck: Yes: Supple, Trachea Midline Cardiovascular: Yes: Regular Rate and Rhythm Respiratory: Yes: Regular, CTA Bilaterally Gastrointestinal: Yes: Normal Bowel Sounds, Soft Genitourinary: Yes: WNL Musculoskeletal: Yes: WNL Extremities: Yes: WNL Edema: No Peripheral Pulses WNL: Yes Neurological: Yes: WNL, Alert ...Motor Strength: WNL Psychiatric: Yes: WNL, Alert Labs: CBC, BMP 01/24/18 06:30 01/24/18 06:30 INR, PTT INR 0.88 (0.83-1.09) 09/18/18 15:00 - ....Imaging Cat Scan: Report Reviewed Assessment/Plan dizziness, chronic sinusitis echo report pending Tachycardia improved DM,HTN PLAN D/c home augmentin 875mg po bid 7 days Continue antibiotics will f/u echo report Ent Consult as OUTpatient
[2018-01-25] MEDS ORDERED: ASPIRIN 81 MG CHEWABLE TABLETS PO SCH (10:00)
--- NOTE | 2018-01-25 11:27 | PN ---
Progress Note, Physician History of Present Illness: Light-headedness resolved. Feels well. Not orthostatic. - Current Medication List Current Medications: Active Medications Acetaminophen (Tylenol -) 650 mg PO Q6H PRN PRN Reason: FEVER Last Admin: 01/24/18 11:00 Dose: 650 mg Aspirin (Asa -) 81 mg PO DAILY [facility] Last Admin: 01/25/18 09:40 Dose: 81 mg Atorvastatin Calcium (Lipitor -) 10 mg PO HS [facility] Last Admin: 01/24/18 21:11 Dose: 10 mg Losartan Potassium (Cozaar -) 50 mg PO DAILY [facility] Last Admin: 01/25/18 09:40 Dose: 50 mg Meclizine HCl (Antivert -) 12.5 mg PO TID PRN PRN Reason: VERTIGO Last Admin: 01/24/18 21:11 Dose: 12.5 mg Metformin HCl (Glucophage -) 500 mg PO BIDAC [facility] Last Admin: 01/25/18 06:26 Dose: 500 mg - Objective Vital Signs: Vital Signs Temperature 98.6 F 01/25/18 06:00 Pulse Rate 62 01/25/18 06:00 Respiratory Rate 20 01/25/18 06:00 Blood Pressure 128/72 01/25/18 06:00 O2 Sat by Pulse Oximetry (%) 99 01/24/18 21:00 Constitutional: Yes: No Distress, Calm, Thin Neck: Yes: Supple Cardiovascular: Yes: Regular Rate and Rhythm Respiratory: Yes: Regular, CTA Bilaterally Gastrointestinal: Yes: Normal Bowel Sounds, Soft Edema: No Labs: CBC, BMP 01/24/18 06:30 01/24/18 06:30 INR, PTT INR 0.88 (0.83-1.09) 01/23/18 15:00 Problem List - Problems (1) Hypertension Code(s): I10 - ESSENTIAL (PRIMARY) HYPERTENSION Qualifiers: Hypertension type: essential hypertension Qualified Code(s): I10 - Essential (primary) hypertension (2) Hyperlipidemia associated with type 2 diabetes mellitus Code(s): E11.69 - TYPE 2 DIABETES MELLITUS WITH OTHER SPECIFIED COMPLICATION; E78.5 - HYPERLIPIDEMIA, UNSPECIFIED (3) Sinusitis Code(s): J32.9 - CHRONIC SINUSITIS, UNSPECIFIED Qualifiers: Sinusitis location: unspecified location (4) Lightheaded Code(s): R42 - DIZZINESS AND GIDDINESS Assessment/Plan 1. Near without true syncope 2. H/o vertigo, ? chronic sinusitis 3. HTN/HCVD 4. Hyperlipidemia 5. Type 2 DM 6. COPD P: 1. F/u echocardiogram results, Meclizine as needed 2. Continue ASA 81 qd, increase Zocor 40 qhs and metformin 1000 bid for goal LDL <100, Ha1c<7.0%, losartan 50 qd, d/c HCTZ 12.5 qd 3. Empiric abx course for sinusitis per ID 4. ENT f/u as outpatient 5. D/C home with f/u in office
[2018-01-25 11:48] VITALS: BP 133/89; PULSE 97; TEMP 98.3
--- NOTE | 2018-01-25 12:20 | ECHO ---
Name: MARYBETH TILLMAN Exam:Adult Echocardiogram Study Date: 01/25/2018 09:00 AM Age: 67 yrs Reason For Study: HTN HEART DISEASE Height: 64 in Weight: 163 lb BSA: 1.8 m2 MMode/2D Measurements & Calculations IVSd: 0.72 cm Ao root diam: 2.4 cm LVIDd: 3.9 cm LA dimension: 3.0 cm LVIDs: 2.4 cm LVPWd: 0.70 cm EDV(Teich): 67.2 ml TAPSE: 1.7 cm ESV(Teich): 20.3 ml RV S Ron: 8.2 cm/sec Doppler Measurements & Calculations MV E max ron: 66.1 cm/sec TR max ron: 233.0 cm/sec MV A max ron: 105.6 cm/sec TR max P.8 mmHg MV E/A: 0.63 Med Peak E' Ron: 5.8 cm/sec Med E/e': 11.3 Lat Peak E' Ron: 5.7 cm/sec Lat E/e': 11.7 Procedure A complete two-dimensional transthoracic echocardiogram was performed (2D, M-mode, Doppler and color flow Doppler). Left Ventricle The left ventricular size, thickness and function are normal. The left ventricular ejection fraction is normal. Ejection Fraction = 60-65%. The left ventricular wall motion is normal. Right Ventricle The right ventricle is normal in size and function. Atria Normal left and right atrial size and function. Mitral Valve There is trace mitral regurgitation. Tricuspid Valve There is trace tricuspid regurgitation. Right ventricular systolic pressure is normal. Aortic Valve The aortic valve is trileaflet. No hemodynamically significant valvular aortic stenosis. No aortic regurgitation is present. Pulmonic Valve There is no pulmonic valvular regurgitation. Great Vessels The aortic root is normal size. Pericardium/Pleura There is no pericardial effusion. Interpretation Summary The left ventricular size, thickness and function are normal. The right ventricle is normal in size and function. There is trace mitral regurgitation. There is trace tricuspid regurgitation. MD Pro Granger 01/25/2018 12:19 PM
== END 2018-01-25 13:18 | disposition home or self-care (01) | DRG 153 ==
LOC: JER 14:27 → JERBED 17:27 → J6S 19:00
PROVIDERS: ADMIT Family Medicine; ATTEND Family Medicine
DX: J32.9 Chronic sinusitis, unspecified (principal); I11.9 Hypertensive heart disease without heart failure; E78.5 Hyperlipidemia, unspecified; E11.9 Type 2 diabetes mellitus without complications; J44.9 Chronic obstructive pulmonary disease, unspecified; R00.0 Tachycardia, unspecified; R42 Dizziness and giddiness
CPT/HCPCS: 36415; 70450-TC; 71045-TC-FY; 80053; 80061; 81003; 82009; 82550; 82803; 82962; 83036; 83605; 83721; 84443; 84484; 85025; 85610; 86850; 86900; 86901; 87040; 87086; 87804; 93005; 93010; 93306-TC; 99282-25; J0131; J7030

== ENCOUNTER 2018-12-28 11:58 | Observation (INO) | payer OTHER ==
[2018-12-28 12:05] VITALS: BMI 27.4
--- NOTE | 2018-12-28 13:51 | PDOC ---
History of Present Illness - General Chief Complaint: Pain Stated Complaint: left abd pain radiating to back History Source: Patient Exam Limitations: No Limitations - History of Present Illness Initial Comments: 12/28/18 13:39 68 yo female pmh HTN, HLD, DM presents to the ED with 2 days of left sided chest discomfort. Pt states the discomfort started approx 1 month ago, has been intermittent, described as dull/achy with radiation wrapping around left flank into her back and is non exertional. Pt Job Placement Officer is Dr. mccarthy, states all cardiac work up has been normal. Last documented eho 60-65%. Denies recent travel, quit smoking 1995, no calf tenderness, denies SOB, abdominal pain, changes in bowel or bladder habits Past History - Past Medical History Allergies/Adverse Reactions: Allergies Allergy/AdvReac Type Severity Reaction Status Date / Time propoxyphene HCl Allergy Swelling Verified 12/28/18 12:14 [From Darn] Home Medications: Ambulatory Orders Aspirin [ASA -] 81 mg PO DAILY 05/08/12 Simvastatin [Zocor -] 20 mg PO HS 05/08/12 metFORMIN HCL [Glucophage] 500 mg PO BID 05/08/12 Glipizide 5 mg PO DAILY 12/28/18 Linagliptin [Tradjenta] 5 mg PO DAILY 12/28/18 Losartan Potassium 25 mg PO DAILY 12/28/18 Meclizine HCl [Antivert -] 12.5 mg PO TID PRN 12/28/18 Asthma: Yes (seasonal allergy,sleep apnea) Cancer: No Cardiac Disorders: No CVA: No COPD: No DVT: No Diabetes: Yes (niddm) HTN: Yes Hypercholesterolemia: Yes - Surgical History Orthopedic Surgery: Yes (left hip replacement) - Immunization History Td Vaccination: Yes TDAP Vaccination: Yes Immunization Up to Date: Yes - Suicide/Smoking/Psychosocial Hx Smoking Status: Yes Smoking History: Unknown if ever smoked Years of Tobacco Use: 10 Have you smoked in the past 12 months: No Number of Cigarettes Smoked Daily: 0 If you are a former smoker, when did you quit?: 1995 Cigars Per Day: 0 Information on smoking cessation initiated: No Hx Alcohol Use: No Drug/Substance Use Hx: No Substance Use Type: None Hx Substance Use Treatment: No Review of Systems - Review of Systems Constitutional: No: Chills, Fever Respiratory: No: Shortness of Breath Cardiac (ROS): Yes: Chest Pain. No: Palpitations ABD/GI: No: Constipated, Diarrhea, Nausea, Vomiting : No: Burning, Dysuria, Frequency Musculoskeletal: Yes: Back Pain Neurological: No: Headache, Numbness, Paresthesia, Weakness *Physical Exam - Vital Signs Last Vital Signs Temp Pulse Resp BP Pulse Ox 98.7 F 83 16 149/67 100 12/28/18 12:01 12/28/18 12:01 12/28/18 12:01 12/28/18 12:01 12/28/18 12:01 - Physical Exam General Appearance: Yes: Nourished, Appropriately Dressed. No: Apparent Distress HEENT: positive: EOMI Neck: positive: Supple. negative: Carotid bruit Respiratory/Chest: positive: Lungs Clear, Normal Breath Sounds. negative: Crackles, Rales, Rhonchi, Stridor, Wheezing Cardiovascular: positive: Regular Rhythm, Regular Rate, S1, S2. negative: Edema , JVD, Murmur Vascular Pulses: Dorsalis-Pedis (R): 4+, Doralis-Pedis (L): 4+ Gastrointestinal/Abdominal: positive: Flat, Soft. negative: Pulsatile Mass, Distended, Guarding, Rebound, Tenderness ED Treatment Course - LABORATORY CBC & Chemistry Diagram: 12/28/18 14:33 12/28/18 14:33 - RADIOLOGY Radiology Studies Ordered: Category Date Time Status CHEST X-RAY PORTABLE* [RAD] Stat Radiology 12/28/18 13:01 Ordered Medical Decision Making - Medical Decision Making 12/28/18 17:04 68 yo female pmh HTN, HLD, DM presents to the ED with 2 days of left sided chest discomfort. Pt states the discomfort started approx 1 month ago, has been intermittent, described as dull/achy with radiation wrapping around left flank into her back and is non exertional. Pt Job Placement Officer is Dr. mccarthy, states all cardiac work up has been normal. Last documented eho 60-65%. Denies recent travel, quit smoking 1995, no calf tenderness, denies SOB, abdominal pain, changes in bowel or bladder habits vitals WNL NAD, ambulates in the ED without difficulty DDX INLT: ACS, PE (not tachy, not hypoxic) MSK *DC/Admit/Observation/Transfer Diagnosis at time of Disposition: ACS (acute coronary syndrome) - Discharge Dispostion Condition at time of disposition: Stable Decision to Admit order: Yes - Referrals Referrals: Kimberly Umaña MD [Primary Care Provider] - - Patient Instructions - Post Discharge Activity
[2018-12-28 15:00] LABS: BASO % 0.6 % (0-2.0); EOS % 3.8 % (0-4.5); HEMATOCRIT 37.5 % (32.4-45.2); HEMOGLOBIN 12.8 GM/dL (10.7-15.3); MCHC 34.1 g/dl (32.0-36.0); MEAN CELL VOLUME 87.9 fl (80-96); MEAN PLT VOLUME 8.1 fl (7.5-11.1); NEUT % 44.6 % (42.8-82.8); PLATELET COUNT 312 K/MM3 (134-434); RBC 4.26 M/mm3 (3.60-5.2); RDW 13.3 % (11.6-15.6); WHITE BLOOD COUNT 6.8 K/mm3 (4.0-10.0)
[2018-12-28 15:14] LABS: INR 0.92 (0.83-1.09); PROTHROMBIN TIME (PATIENT) 10.8 SEC (9.7-13.0)
--- NOTE | 2018-12-28 15:16 | PDOC ---
Documentation entered by Grayson Chaney SCRIBE, acting as scribe for Malena Faustin MD. Malena Faustin MD: This documentation has been prepared by the Ritu herron Elijah, SCRIBE, under my direction and personally reviewed by me in its entirety. I confirm that the documentation accurately reflects all work, treatment, procedures, and medical decision making performed by me. Attending Attestation - Resident Resident Name: FaustinaoseasJamal - ED Attending Attestation I have performed the following: I have examined & evaluated the patient, The case was reviewed & discussed with the resident, I agree w/resident's findings & plan, Exceptions are as noted - HPI HPI: 12/28/18 14:13 Patient is a 68 year old female with a significant past medical history of HTN, HLD, DM and vertigo who presents to the ED with intermittent sternal chest pain radiating around to the left breast to her mid axillary line constantly for 3 days. Patient describes the pain as discomfort, reports pain has been present sporadically before but not constantly as it has for 3 days. Denies associated dizziness, headache, weakness, numbness, diaphoresis. Patient notes nothing brings about the pain, it occurs at rest and with exertion, and she is unaware of any modifying factors. Denies SOB, leg swelling, recent travel/immobility, nausea, vomiting. Allergies: Propoxyphene HCL PCP: Dr. Simmons Bush Regenerator: Dr. Eid - Physicial Exam PE: 12/28/18 14:20 GENERAL: Awake, alert, and fully oriented, in no acute distress. HEAD: No signs of trauma EYES: PERRLA, EOMI, sclera anicteric, conjunctiva clear ENT: Auricles normal inspection, hearing grossly normal, nares patent, oropharynx clear without exudates. Moist mucosa NECK: Nontender, no stepoffs, Normal ROM, supple, no lymphadenopathy, JVD, or masses LUNGS: Breath sounds equal, clear to auscultation bilaterally. No wheezes, and no crackles HEART: Regular rate and rhythm, normal S1 and S2, no murmurs, rubs or gallops ABDOMEN: Soft, nontender, normoactive bowel sounds. No guarding, no rebound. No masses EXTREMITIES: Normal range of motion, no edema. No clubbing or cyanosis. No cords, erythema, or tenderness NEUROLOGICAL: Cranial nerves II through XII intact. 5/5 strength and sensation in all extremities, Normal speech, normal gait, normal cerebellar function SKIN: Warm, Dry, normal turgor, no rashes or lesions noted. - Medical Decision Making 12/28/18 15:14 68yo F with hx HTN, DM, HL presents to the ED with sternal CP radiating to around L chest. Vitals wnl Exam wnl EKG with no SILVINA DDx includes ACS vs CHF vs MSK pain vs PNA Plan for labs, monitor, obs admission as heart score is 5 Heart Score/ECG Review - History History: Moderately suspicious - Electrocardiogram EKG: Normal - Age Age: >/= 65 - Risk Factors Risk Factors Heart Score: Yes Hx Hypercholesterolemia, Yes Hx Hypertension, Yes Hx Diabetes Based on the list above the patient has:: >/=3 risk factors or Hx atherosclerotic disease - Troponin Troponin: </= normal limit - Score Heart Score - Total: 5 #1 12/28/18 15:14 EKG read and int by me: NSR, rate 79. Normal axis and intervals. No SILVINA or TWI.
[2018-12-28 15:28] LABS: EPI CELLS 0.7 /HPF (0-5/HPF); HYALINE CASTS 0 /lpf (0-8); URINE APPEARANCE CLEAR; URINE BACTERIA 2.5 /hpf (NEGATIVE); URINE BILIRUBIN NEGATIVE (NEGATIVE); URINE COLOR YELLOW; URINE GLUCOSE (UA) NEGATIVE (NEGATIVE); URINE KETONE NEGATIVE (NEGATIVE); URINE LEUK ESTERASE TRACE (NEGATIVE); URINE NITRITE NEGATIVE (NEGATIVE); URINE PROTEIN NEGATIVE (NEGATIVE); URINE RBC 0 /hpf (0-4); URINE UROBILINOGEN 0.2 mg/dL (0.2-1.0); URINE WBC 1 /hpf (0-5)
[2018-12-28 15:32] LABS: ALBUMIN 4.1 g/dl (3.4-5.0); ALK PHOS 99 U/L (45-117); ANION GAP 7 MMOL/L (8-16); BILIRUBIN,TOTAL 0.4 mg/dL (0.2-1); BLOOD UREA NITROGEN 13.7 mg/dL (7-18); CALCIUM 9.9 mg/dL (8.5-10.1); CHLORIDE 105 mmol/L (98-107); CO2 29 mmol/L (21-32); CREATININE 0.9 mg/dL (0.55-1.3); GLUCOSE,RANDOM 84 mg/dL (74-106); N-TERMINAL BNP 20.6 pg/ml (5-125); POTASSIUM 4.6 mmol/L (3.5-5.1); SGOT/AST 32 U/L (15-37); SGPT/ALT 32 U/L (13-61); SODIUM 140 mmol/L (136-145)
--- NOTE | 2018-12-28 15:42 | EKG ---
Test Reason : Blood Pressure : / mmHG Vent. Rate : 079 BPM Atrial Rate : 079 BPM P-R Int : 144 ms QRS Dur : 070 ms QT Int : 372 ms P-R-T Axes : 033 -01 038 degrees QTc Int : 426 ms POOR DATA QUALITY, INTERPRETATION MAY BE ADVERSELY AFFECTED NORMAL SINUS RHYTHM NORMAL ECG WHEN COMPARED WITH ECG OF 23-JAN-2018 15:11, VENT. RATE HAS DECREASED BY 43 BPM Confirmed by DERRELL MENA, RUBY ([id number]) on 12/28/2018 3:41:43 PM Referred By: Confirmed By:RUBY DOVE MD
[2018-12-28] MEDS ORDERED: metFORMIN HCL 500 MG TABLET (FP) PO ONE (16:32)
[2018-12-28] MEDS ORDERED: LOSARTAN 50MG/HCTZ 12.5MG 1 TAB (FP) PO ONE (16:33)
[2018-12-28] MEDS ORDERED: ATORVASTATIN CA 20 MG TABLET (FP) PO ONE (16:36)
[2018-12-28] MEDS ORDERED: glipiZIDE-XL 5 MG TAB.ER.24 PO ONE (16:37)
[2018-12-28] MEDS ORDERED: sitaGLIPtin PHOSPHATE 50 MG TABLET PO ONE (16:38)
[2018-12-28] MEDS: ASPIRIN COATED 81 MG TABLET.EC PO SCH (18:22)
[2018-12-29 07:06] LABS: ALBUMIN 4.1 g/dl (3.4-5.0); ALK PHOS 100 U/L (45-117); ANION GAP 7 MMOL/L (8-16); BILIRUBIN,TOTAL 0.7 mg/dL (0.2-1); BLOOD UREA NITROGEN 13.9 mg/dL (7-18); CALCIUM 9.9 mg/dL (8.5-10.1); CHLORIDE 105 mmol/L (98-107); CO2 30 mmol/L (21-32); GLUCOSE,RANDOM 95 mg/dL (74-106); POTASSIUM 4.3 mmol/L (3.5-5.1); SGOT/AST 15 U/L (15-37); SGPT/ALT 30 U/L (13-61); SODIUM 142 mmol/L (136-145); TOT PROT 7.8 g/dl (6.4-8.2)
[2018-12-29 07:22] LABS: BASO % 1.4 % (0-2.0); EOS % 5.4 % (0-4.5); HEMATOCRIT 37.6 % (32.4-45.2); HEMOGLOBIN 12.8 GM/dL (10.7-15.3); LYMPH % 41.4 % (8-40); MCH 29.9 pg (25.7-33.7); MONO % 9.1 % (3.8-10.2); NEUT % 42.7 % (42.8-82.8); PLATELET COUNT 303 K/MM3 (134-434); RBC 4.28 M/mm3 (3.60-5.2); RDW 13.3 % (11.6-15.6); WHITE BLOOD COUNT 5.6 K/mm3 (4.0-10.0)
--- NOTE | 2018-12-29 07:53 | HP ---
DATE OF ADMISSION: 12/28/2018 She is a 68-year-old female with a history of hypertension, hyperlipidemia, diabetes, and vertigo, presented to the emergency room with complaints of discomfort on the left side of the chest. As per the patient, she states that the discomfort started approximately 1 month ago, has been intermittent. It was dull, aching, and radiation wrapping around the left flank into her back. It is non-exertional. No palpitations, no shortness of breath, and no dizziness. No history of recent travel. No bowel or bladder symptoms. As per the patient, she was seen by Cardiology 2 months ago and had a cardiac workup, and everything was normal. PAST MEDICAL HISTORY: Diabetes, hypertension, hyperlipidemia. ALLERGIES: PROPOXYPHENE HYDROCHLORIDE. MEDICATIONS: Aspirin 81 mg daily, simvastatin 120 mg daily, metformin 500 mg p.o. b.i.d., glipizide 5 mg daily, Trajenta 5 mg p.o. daily, losartan 25 mg p.o. daily. SURGICAL HISTORY: left hip replacement. PERSONAL HISTORY: History of smoking in the past. REVIEW OF SYSTEMS: Constitutional: No chills. No fever. Respiratory: No shortness of breath. Cardiovascular: Chest discomfort on the left side. No palpitations. Abdomen: No history of constipation, pain. No nausea/vomiting. Musculoskeletal: No symptoms. Neurological: No history of headache, dizziness, or motor weakness. PHYSICAL EXAMINATION: Vital Signs: In the emergency room, temperature 98.7, pulse 83 per minute, respirations 16, blood pressure 149/67, pulse oximetry 100%. General Appearance: Well nourished. No apparent distress. Head and Neck: Normal. Neck supple. No JVD. No carotid bruit. Respiratory: Chest clear. No rales or rhonchi. Normal breath sounds. Cardiovascular: First and second sound normal. No murmur. Abdomen: Soft. No tenderness. No distention. Bowel sounds present. Extremities: No edema. LABORATORY DATA: CBC: WBC 6.8, hemoglobin 12.8, hematocrit 37.5, platelets 312. Comprehensive panel: Sodium 140, potassium 4.5, chloride 105, bicarbonate 29, BUN 13.7, creatinine 0.9, and sugar 84. Chest x-ray pending. Troponin negative. AST and ALT normal. EKG shows normal sinus rhythm. When compared to the EKG on January 23, 2018, heart rate is slightly decreased. No acute change. BNP is 20.6. Patient admitted to telemetry with the admitting diagnosis of atypical chest pain, rule out acute coronary syndrome; diabetes; hypertension; hyperlipidemia. PLAN: Cardiology consult. Monitor troponin and EKG. Continue home medication. Patient stable on the floor. Sky [id number]
[2018-12-29] MEDS ORDERED: ACETAMINOPHEN 325 MG TABLET (FP) ONE (08:10)
--- NOTE | 2018-12-29 10:07 | PN ---
Progress Note (short form) - Note Progress Note: Chief Complaint: Events noted, notes reviewed, presented with left sided chest discomfort, denies any recurrent chest discomfort, denies any dyspnea, EKG and cardiac biochemical markers noted History of Present Illness: Seen and examined on telemetry. Full consult dictated Medications: Current Medications Aspirin (Ecotrin -) 81 mg PO DAILY CAYDEN Last Admin: 12/28/18 18:22 Dose: Not Given Home Medications Medication Instructions Recorded Aspirin [ASA -] 81 mg PO DAILY 05/08/12 Simvastatin [Zocor -] 20 mg PO HS 05/08/12 metFORMIN HCL [Glucophage] 500 mg PO BID 05/08/12 Glipizide 5 mg PO DAILY 12/28/18 Linagliptin [Tradjenta] 5 mg PO DAILY 12/28/18 Losartan Potassium 25 mg PO DAILY 12/28/18 Meclizine HCl [Antivert -] 12.5 mg PO TID PRN 12/28/18 Review of Systems Constitutional: denies: Chills or Fever Cardiovascular: as noted above Respiratory: denies: Cough Gastrointestinal: denies: Nausea, Vomiting, Diarrhea, Constipation or Abdominal Pain Genitourinary: denies: Dysuria Musculoskeletal: denies: Joint Pain Neurological: denies: Dizziness or Headache Vital Signs: Last Vital Signs Temp Pulse Resp BP Pulse Ox 97.5 F L 71 20 103/72 99 12/29/18 06:00 12/29/18 06:00 12/29/18 06:00 12/29/18 06:00 12/28/18 22:00 Intake & Output 12/26/18 12/27/18 12/28/18 12/29/18 23:59 23:59 23:59 23:59 Intake Total 200 Balance 200 Weight 160 lb Constitutional: No Distress, Calm, Thin Respiratory: Clear to A&P Cardiovascular: S1 S2 Regular Rate and Rhythm Grade 1/6 Systolic Ejection Murmur Gastrointestinal: Soft Benign Normal Bowel Sounds Ext: No Edema Labs: Troponin, BNP 12/28/18 12/28/18 12/29/18 14:33 18:19 05:45 Troponin I < 0.02 < 0.02 < 0.02 B-Natriuretic Peptide 20.6 CBC, BMP 12/29/18 05:45 12/29/18 05:45 Hepatic Panel Total Bilirubin 0.7 mg/dL (0.2-1) 12/29/18 05:45 AST 15 U/L (15-37) 12/29/18 05:45 ALT 30 U/L (13-61) 12/29/18 05:45 Alkaline Phosphatase 100 U/L (45-117) 12/29/18 05:45 Albumin 4.1 g/dl (3.4-5.0) 12/29/18 05:45 INR, PTT INR 0.92 (0.83-1.09) 12/28/18 14:33 Assessment/Plan ASSESSMENT: 1. Chest pain syndrome- atypical for angina pectoris 2. CAD angina pectoris to be excluded 3. Probable diastolic LV dysfunction with clinical class 0 NYHA classification LV failure 4. 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 HTN 6. DM 7. Hypercholesterolemia PLAN: 1. Continue Cozaar 2. Add Toprol XL 3. Continue Statins/Zocor 4. Continue ASA 5. Additional evaluation can be performed as outpatient since patient currently is asymptomatic and there is no evidence of ACS, including echocardiography and pharmacologic MPI study Chris Shoemaker M.D.
[2018-12-29] MEDS: ASPIRIN COATED 81 MG TABLET.EC PO SCH (10:25)
[2018-12-29 11:22] VITALS: BP 107/70; PULSE 63; TEMP 98.3
--- NOTE | 2018-12-29 13:49 | PN ---
Progress Note, Physician Chief Complaint: pt resting comfortably no chest pain,no sob,no palpitation cardiologyn note appreciated cardiology cleared for d/c as per cardiac enzymes NL and pt assymptamatic - Current Medication List Current Medications: Active Medications Aspirin (Ecotrin -) 81 mg PO DAILY CAYDEN Last Admin: 12/29/18 10:25 Dose: 81 mg - Objective Vital Signs: Vital Signs Temperature 98.3 F 12/29/18 09:00 Pulse Rate 63 12/29/18 09:00 Respiratory Rate 20 12/29/18 09:00 Blood Pressure 107/70 12/29/18 09:00 O2 Sat by Pulse Oximetry (%) 99 12/29/18 09:00 Constitutional: Yes: No Distress Eyes: Yes: Conjunctiva Clear HENT: Yes: Atraumatic Neck: Yes: Supple, Trachea Midline Cardiovascular: Yes: Regular Rate and Rhythm Respiratory: Yes: Regular, CTA Bilaterally Gastrointestinal: Yes: Normal Bowel Sounds, Soft Musculoskeletal: Yes: WNL Extremities: Yes: WNL Edema: No Peripheral Pulses WNL: Yes Neurological: Yes: WNL, Alert, Oriented ...Motor Strength: WNL Psychiatric: Yes: WNL, Alert Labs: CBC, BMP 12/29/18 05:45 12/29/18 05:45 INR, PTT INR 0.92 (0.83-1.09) 12/28/18 14:33 Laboratory Results - last 24 hr 12/28/18 12/28/18 12/28/18 14:33 14:33 14:33 WBC 6.8 RBC 4.26 Hgb 12.8 Hct 37.5 MCV 87.9 MCH 30.0 MCHC 34.1 RDW 13.3 Plt Count 312 MPV 8.1 Absolute Neuts (auto) 3.0 Neutrophils % 44.6 D Lymphocytes % 42.0 H Monocytes % 9.0 Eosinophils % 3.8 Basophils % 0.6 Nucleated RBC % 0 PT with INR 10.80 INR 0.92 Sodium 140 Potassium 4.6 Chloride 105 Carbon Dioxide 29 Anion Gap 7 L BUN 13.7 Creatinine 0.9 Est GFR (CKD-EPI)AfAm 75.61 Est GFR (CKD-EPI)NonAf 65.24 POC Glucometer Random Glucose 84 Calcium 9.9 Total Bilirubin 0.4 AST 32 ALT 32 Alkaline Phosphatase 99 Creatine Kinase 114 Troponin I < 0.02 B-Natriuretic Peptide 20.6 Total Protein 8.0 Albumin 4.1 Urine Color Urine Appearance Urine pH Ur Specific Picacho Urine Protein Urine Glucose (UA) Urine Ketones Urine Blood Urine Nitrite Urine Bilirubin Urine Urobilinogen Ur Leukocyte Esterase Urine WBC (Auto) Urine RBC (Auto) Urine Casts (Auto) U Epithel Cells (Auto) Urine Bacteria (Auto) 12/28/18 12/28/18 12/29/18 14:55 18:19 05:45 WBC 5.6 RBC 4.28 Hgb 12.8 Hct 37.6 MCV 88.0 MCH 29.9 MCHC 34.0 RDW 13.3 Plt Count 303 MPV 8.0 Absolute Neuts (auto) 2.4 Neutrophils % 42.7 L Lymphocytes % 41.4 H Monocytes % 9.1 Eosinophils % 5.4 H Basophils % 1.4 Nucleated RBC % 0 PT with INR INR Sodium Potassium Chloride Carbon Dioxide Anion Gap BUN Creatinine Est GFR (CKD-EPI)AfAm Est GFR (CKD-EPI)NonAf POC Glucometer Random Glucose Calcium Total Bilirubin AST ALT Alkaline Phosphatase Creatine Kinase Troponin I < 0.02 B-Natriuretic Peptide Total Protein Albumin Urine Color Yellow Urine Appearance Clear Urine pH 7.0 Ur Specific [place] 1.006 L Urine Protein Negative Urine Glucose (UA) Negative Urine Ketones Negative Urine Blood Negative Urine Nitrite Negative Urine Bilirubin Negative Urine Urobilinogen 0.2 Ur Leukocyte Esterase Trace Urine WBC (Auto) 1 Urine RBC (Auto) 0 Urine Casts (Auto) 0 U Epithel Cells (Auto) 0.7 Urine Bacteria (Auto) 2.5 12/29/18 12/29/18 05:45 06:21 WBC RBC Hgb Hct MCV MCH MCHC RDW Plt Count MPV Absolute Neuts (auto) Neutrophils % Lymphocytes % Monocytes % Eosinophils % Basophils % Nucleated RBC % PT with INR INR Sodium 142 Potassium 4.3 Chloride 105 Carbon Dioxide 30 Anion Gap 7 L BUN 13.9 Creatinine 1.0 Est GFR (CKD-EPI)AfAm 66.57 Est GFR (CKD-EPI)NonAf 57.44 POC Glucometer 97 Random Glucose 95 Calcium 9.9 Total Bilirubin 0.7 AST 15 ALT 30 Alkaline Phosphatase 100 Creatine Kinase Troponin I < 0.02 B-Natriuretic Peptide Total Protein 7.8 Albumin 4.1 Urine Color Urine Appearance Urine pH Ur Specific Picacho Urine Protein Urine Glucose (UA) Urine Ketones Urine Blood Urine Nitrite Urine Bilirubin Urine Urobilinogen Ur Leukocyte Esterase Urine WBC (Auto) Urine RBC (Auto) Urine Casts (Auto) U Epithel Cells (Auto) Urine Bacteria (Auto) - ....Imaging EKG: Report Reviewed Assessment/Plan Atypical chest pain DM,HTN,hypercholestrolemia PLAN D?C home Continue home meds Toprol xl 25 mg po daily F/u withPMD and cardiology in ONE 1 wk
--- NOTE | 2018-12-29 14:19 | CONS ---
DATE OF CONSULTATION: 12/29/2018 Consultation requested by Kimberly Umaña MD. CHIEF COMPLAINT: Evaluation of chest discomfort. HISTORY OF PRESENT ILLNESS: A 68-year-old female of -[place] descent with known history of probable diastolic left ventricular dysfunction with clinical class 0 [place] Heart Association classification left ventricular failure, hypertensive cardiovascular disease, diabetes mellitus, hypercholesterolemia, who presented to [facility] with intermittent episodes of left-sided chest discomfort which were described as sharp pain. Symptoms were intermittent, but in view of persistence, patient presented for further evaluation and management. Patient currently is symptom free. Patient denied any associated symptomatology, i.e., diaphoresis. Patient denied any exacerbation with physical exertion. Patient denied any dyspnea, orthopnea, paroxysmal nocturnal dyspnea or peripheral edema. Patient denies any palpitations, dizziness, lightheadedness or syncope. PAST MEDICAL HISTORY: Probable diastolic left ventricular dysfunction with clinical class 0 [place] Heart Association classification left ventricular failure; hypertensive cardiovascular disease; diabetes mellitus; hypercholesterolemia. SOCIAL HISTORY: Remote history of tobacco abuse. FAMILY HISTORY: Positive coronary artery disease. ALLERGIES: Propoxyphene. MEDICAL THERAPY: At home included Ecotrin 81 mg once a day; Zocor 20 mg once a day; Glucophage 500 mg twice a day; glipizide 5 mg once a day; Tradjenta 5 mg once a day; losartan 25 mg once daily; meclizine 12.5 mg 3 times a day as needed for benign positional vertigo. REVIEW OF SYSTEMS: Head and Neck: Denies headache, photophobia, blurring of vision. Respiratory: No cough or sputum production. Cardiovascular: As noted above. Gastrointestinal: Denied nausea, vomiting, diarrhea, abdominal discomfort. Genitourinary: No symptoms reported. PHYSICAL EXAMINATION: Vital Signs: Blood pressure is 103/72 mmHg, pulse rate is 71 beats per minute. Head and Neck: Pupils equally reactive to light and accommodation. Extraocular muscles are intact. Anicteric sclerae. Negative JVD. No bruit appreciated. Chest: Clear to auscultation and percussion. Cardiovascular: S1, S2, regular. A grade 1 over 6 systolic ejection murmur. No clicks or gallops. Abdomen: Soft. Benign. Normoactive bowel sounds. Extremities: Negative edema. Intact distal pulses. No calf tenderness. Electrocardiogram reveals sinus rhythm within normal limits. CBC revealed a white cell count of 5.6, hemoglobin 12.8, platelet count 303. Basic metabolic profile revealed a sodium of 142, potassium 4.3, BUN of 13.9, creatinine 1.0, glucose 95. Troponin less than 0.02. ASSESSMENT: 1. Chest pain syndrome. Atypical for angina pectoris. 2. Coronary artery disease. Angina pectoris to be excluded. 3. Probable diastolic left ventricular dysfunction with clinical class 0 [place] Heart Association classification left ventricular failure. 4. Heart murmur, related to aortic valve sclerosis with no clinical evidence of aortic valve stenosis. 5. Hypertension. 6. Diabetes mellitus. 7. Hypercholesterolemia. PLAN: 1. Continuation of Cozaar therapy. 2. Addition of Toprol XL therapy. 3. Continuation of statin therapy/Zocor. 4. Continuation of aspirin therapy. 5. Additional evaluation can be performed as outpatient, since patient currently is asymptomatic, and there is no evidence of acute coronary syndrome by electrocardiographic criteria or cardiac biochemical markers. Testing, including echocardiography and pharmacologic myocardial perfusion imaging study. Thank you for the kind referral. KILO MONTERO M.D. [id number]
--- NOTE | 2019-01-01 14:11 | DS ---
DATE OF ADMISSION: 12/28/2018 DATE OF DISCHARGE: 12/29/2018 HISTORY: A 68-year-old female with a history of diabetes, hypercholesterolemia, hypertensive cardiovascular disease admitted with left-sided chest discomfort. Symptoms were intermittent. PHYSICAL EXAMINATION: General: At the time of admission, patient was alert and oriented x3. No apparent distress. Vital Signs: Vitals are normal. Pulse rate 83, blood pressure 149/67, saturation 100%, respirations 16. HEENT: Normal. Neck: Normal. Respiratory: Chest clear. Cardiovascular: First and 2nd sound normal. Abdomen: Soft and nontender. distention. LABORATORY: Lab was normal. Cardiac enzymes x3 were negative. Chest x-ray report was normal. No acute infiltrate. EKG was normal sinus rhythm. No acute changes. Patient was admitted to telemetry. Was stable on the floor. Patient was seen by Cardiology. As per Cardiology, patient is asymptomatic and no evidence of acute coronary syndrome by EKG or by biochemical markers. Patient discharged home in a stable condition. Recommend to do echocardiogram and pharmacological myocardial perfusion imaging study as an outpatient. Recommended to follow up with primary and cardiology in 1 week and recommended to continue all medications. Sky [id number]
== END 2018-12-29 14:51 | disposition home or self-care (01) ==
LOC: JER 11:58 → JERBED 15:58 → J4W 20:47
PROVIDERS: ADMIT Family Medicine; ATTEND Family Medicine
DX: R07.89 Other chest pain (principal); E78.5 Hyperlipidemia, unspecified; E11.9 Type 2 diabetes mellitus without complications; R01.1 Cardiac murmur, unspecified; I25.119 Atherosclerotic heart disease of native coronary artery with unspecified angina pectoris; G47.30 Sleep apnea, unspecified; Z79.82 Long term (current) use of aspirin; Z79.84 Long term (current) use of oral hypoglycemic drugs; Z96.642 Presence of left artificial hip joint
CPT/HCPCS: 36415; 71046-TC-FY; 80053; 81003; 82550; 82962; 83880; 84484; 85025; 85610; 87086; 93005; 93010; 99284-25; G0378

== ENCOUNTER → 2020-02-17 | Day surgery (SDC) | payer OTHER ==
--- OUTSIDE RECORDS SUMMARY | 2020-02-17 09:27 | XMS ---
:1950 Author Organization [facility] Care Team Providers Name Role Phone THAIS ALBRECHT Unavailable Unavailable Re-disclosure Warning The records that you are about to access may contain information from federally- assisted alcohol or drug abuse programs. If such information is present, then the following federally mandated warning applies: This information has been disclosed to you from records protected by federal confidentiality rules (42 CFR part 2). The federal rules prohibit you from making any further disclosure of this information unless further disclosure is expressly permitted by the written consent of the person to whom it pertains or as otherwise permitted by 42 CFR part 2. A general authorization for the release of medical or other information is NOT sufficient for this purpose. The Federal rules restrict any use of the information to criminally investigate or prosecute any alcohol or drug abuse patient.The records that you are about to access may contain highly sensitive health information, the redisclosure of which is protected by Article 27-F of the [facility] Public Health law. If you continue you may haveaccess to information: Regarding HIV / AIDS; Provided by facilities licensed or operated by the [facility] Office of Mental Health; or Provided by the [facility] Office for People With Developmental Disabilities. If such information is present, then the following [facility] mandated warning applies: This information has been disclosed to you from confidential records which are protected by state law. State law prohibits you from making any further disclosure of this information without the specific written consent of the person to whom it pertains, or as otherwise permitted by law. Any unauthorized further disclosure in violation of state law may result in a fine or senior care sentence or both. A general authorization for the release of medical or other information is NOT sufficient authorization for further disclosure. Encounters Encounter Providers Location Date Indications Data Source(s ) Outpatient Attender: THAIS Sebastian 04/22/2019 [facility] PRIS[facility]LLA 09:55:00 AM Medical Ce hanh PLASCENCIAAdmitter: THAIS PLASCENCIAReferrer: THAIS PLASCENCIA Insurance Providers Payer name Policy type Policy ID Covered Covered green party's Policy P anneliese / Coverage green party ID relationship to Vance Inf ormation type vance MEDICAID [id number] SP [id number] [facility] [id number] SP [id number] MEDICARE HEALTH FIRST [id number] HEALTH PLANS [place] MEDICARE [id number] HEALTH FIRST O [id number] Medicaid [id number] Regular Clinic Visit Medicare-Blue [id number] S [id number] Cross/Blue Shield Medicare [id number] S [id number] [facility] [id number] S [id number] [facility] [place] [facility] [id number] S [id number] [facility] [id number] S [id number] Medicare Mng Care Problems, Conditions, and Diagnoses Code Display Name Description Problem Type Effective Dates Data Source(s) Z12.31 Encounter for ENCNTR SCREEN Diagnosis 04/22/2019 [facility] screening MAMMOGRAM FOR 09:55:00 AM EST [facility] mammogram for MALIGNANT NEOPLASM malignant OF BREAST neoplasm of breast
--- NOTE | 2020-02-18 15:49 | PATH ---
Cytology Non-Gynecological Report Patient Name: MARYBETH TILLMAN [facility]. Rec. #: [id number] /Age/Gender: 1950 (Age: 69) / F Account: [id number] Location: RADIOLOGY INTER Taken: 02/17/2020 Received: 02/17/2020 Reported: 02/18/2020 Physicians: Sky Escobedo M.D. Specimen(s) Received THYROID, RIGHT LOBE, FINE NEEDLE ASPIRATION Clinical History Right lobe, 2.33 x 1.43 x 1.65 cm Final Diagnosis THYROID, RIGHT LOBE, FINE NEEDLE ASPIRATION: SATISFACTORY FOR EVALUATION. BETHESDA CLASS II: BENIGN. CYTOLOGIC FINDINGS ARE CONSISTENT WITH A BENIGN FOLLICULAR NODULE. SMALL FOLLICULAR CELLS, ABUNDANT COLLOID, AND FEW MACROPHAGES PRESENT. Electronically Signed Alana Moreland M.D. Gross Description Received are eight direct smears, four of which are air-dried and Diff-Quik stained, and four of which are alcohol fixed and Pap stained. Also received is 20 ml of bloody formalin from which one cellblock is prepared.
== END | disposition home or self-care (01) ==
LOC: JRADIR 09:23
PROVIDERS: ATTEND Internal Medicine Endocrinology, Diabetes & Metabolism
PROC: 0G9K3ZX Drainage of Thyroid Gland, Percutaneous Approach, Diagnostic (ICD-10-PCS; principal; 2020-02-17)
DX: E04.1 Nontoxic single thyroid nodule (principal)
CPT/HCPCS: 76942; 88173; 88305-TC

== ENCOUNTER 2020-11-28 06:55 | Observation (INO) | payer OTHER ==
[2020-11-28] MEDS ORDERED: MECLIZINE HCL 25 MG TABLET (FP) PO ONE (07:40)
[2020-11-28] MEDS ORDERED: SODIUM CHLORIDE 0.9% 500 ML INFUS.BAG IV ONE ×2 (07:40→10:22)
[2020-11-28] MEDS ORDERED: MECLIZINE HCL 25 MG TABLET (FP) ONE (07:54)
[2020-11-28] MEDS ORDERED: LORazepam 2 MG/ML SDV VIAL IVPUSH ONE (08:45)
[2020-11-28 09:05] LABS: BASO % 0.9 % (0-2.0); EOS % 1.6 % (0-4.5); HEMATOCRIT 38.1 % (32.4-45.2); HEMOGLOBIN 12.9 GM/dL (10.7-15.3); LYMPH % 21.3 % (8-40); MCH 29.8 pg (25.7-33.7); MCHC 33.9 g/dl (32.0-36.0); MEAN CELL VOLUME 87.9 fl (80-96); MEAN PLT VOLUME 8.2 fl (7.5-11.1); MONO % 6.6 % (3.8-10.2); NEUT % 69.6 % (42.8-82.8); PLATELET COUNT 306 10^3/uL (134-434); RBC 4.34 M/mm3 (3.60-5.2); RDW 12.9 % (11.6-15.6); WHITE BLOOD COUNT 7.2 K/mm3 (4.0-10.0)
[2020-11-28] MEDS ORDERED: LORazepam 2 MG/ML SDV VIAL ONE (09:05)
[2020-11-28 09:18] LABS: CHLORIDE 102 mmol/L (98-107); SODIUM 138 mmol/L (136-145)
[2020-11-28 09:21] LABS: ALBUMIN 3.9 g/dl (3.4-5.0); ANION GAP 8 MMOL/L (8-16); BLOOD UREA NITROGEN 14.9 mg/dL (7-18); CALCIUM 9.3 mg/dL (8.5-10.1); CO2 27 mmol/L (21-32); GLUCOSE,RANDOM 235 mg/dL (74-106)
[2020-11-28 09:24] LABS: CREATININE 1.1 mg/dL (0.55-1.3); SGOT/AST 33 U/L (15-37); SGPT/ALT 66 U/L (13-61)
[2020-11-28 09:26] LABS: BILIRUBIN,TOTAL 0.4 mg/dL (0.2-1); TOT PROT 7.5 g/dl (6.4-8.2)
[2020-11-28 09:27] LABS: ALK PHOS 103 U/L (45-117)
[2020-11-28 14:41] VITALS: BMI 28.5
[2020-11-28 16:14] LABS: INR 1.03 (0.83-1.09); PROTHROMBIN TIME (PATIENT) 12.6 SEC (9.7-13.0)
[2020-11-28 16:17] LABS: ACTIVATED PTT 24.2 SECONDS (25.2-36.5)
[2020-11-28] MEDS ORDERED: MECLIZINE HCL 12.5 MG TABLET PO PRN (16:29)
[2020-11-28] MEDS ORDERED: ASPIRIN 81 MG CHEWABLE TABLETS PO ONE (19:29)
[2020-11-28] MEDS ORDERED: metoPROLOL SUCCINATE 25 MG TAB.SR.24H (FP) PO ONE (19:29)
[2020-11-28] MEDS: ATORVASTATIN CA 10 MG TABLET (FP) PO SCH (21:28)
[2020-11-28] MEDS: INSULIN SLIDING SCALE (NOVOLOG) 1 VIAL SQ SCH (21:31)
[2020-11-28] MEDS ORDERED: INSULIN SLIDING SCALE (NOVOLOG) 1 VIAL SQ SCH (22:00)
[2020-11-29] MEDS ORDERED: PT OWN MED DRAWER 7, Y5N ONE (05:53)
[2020-11-29] MEDS: glipiZIDE 5 MG TABLET (FP) PO SCH (06:03)
[2020-11-29] MEDS: INSULIN SLIDING SCALE (NOVOLOG) 1 VIAL SQ SCH ×4 (06:03→21:43)
[2020-11-29 07:31] LABS: BASO % 0.5 % (0-2.0); EOS % 4.6 % (0-4.5); HEMATOCRIT 34.1 % (32.4-45.2); HEMOGLOBIN 11.6 GM/dL (10.7-15.3); LYMPH % 40.8 % (8-40); MEAN CELL VOLUME 88.3 fl (80-96); MEAN PLT VOLUME 8.1 fl (7.5-11.1); MONO % 10.1 % (3.8-10.2); PLATELET COUNT 271 10^3/uL (134-434); RBC 3.86 M/mm3 (3.60-5.2); RDW 13.2 % (11.6-15.6); WHITE BLOOD COUNT 5.3 K/mm3 (4.0-10.0)
[2020-11-29 07:42] LABS: ALBUMIN 3.2 g/dl (3.4-5.0); BLOOD UREA NITROGEN 16.1 mg/dL (7-18); CALCIUM 8.7 mg/dL (8.5-10.1); MAGNESIUM 2.1 mg/dL (1.8-2.4)
[2020-11-29 07:45] LABS: CREATININE 0.9 mg/dL (0.55-1.3); PHOSPHOROUS 3.9 mg/dL (2.5-4.9)
[2020-11-29 07:47] LABS: BILIRUBIN,TOTAL 0.4 mg/dL (0.2-1); TOT PROT 6.3 g/dl (6.4-8.2)
[2020-11-29] MEDS: ACETAMINOPHEN 325 MG TABLET (FP) PO PRN (10:09)
[2020-11-29] MEDS: metoPROLOL SUCCINATE 25 MG TAB.SR.24H (FP) PO SCH (10:16)
[2020-11-29] MEDS: ASPIRIN 81 MG CHEWABLE TABLETS PO SCH (10:16)
[2020-11-29] MEDS: LOSARTAN POTASSIUM 25 MG TABLET PO SCH (10:16)
[2020-11-29] MEDS: ENOXAPARIN NA (PORCINE) 40 MG/0.4 ML DISP.SYRIN SQ SCH (10:17)
[2020-11-29] MEDS: ATORVASTATIN CA 10 MG TABLET (FP) PO SCH (21:12)
[2020-11-30] MEDS ORDERED: PT OWN MED DRAWER 7, Y5N ONE (05:15)
[2020-11-30] MEDS: glipiZIDE 5 MG TABLET (FP) PO SCH (06:22)
[2020-11-30] MEDS: INSULIN SLIDING SCALE (NOVOLOG) 1 VIAL SQ SCH (06:22)
[2020-11-30] MEDS: ACETAMINOPHEN 325 MG TABLET (FP) PO PRN (08:56)
[2020-11-30] MEDS: LOSARTAN POTASSIUM 25 MG TABLET PO SCH (09:00)
[2020-11-30] MEDS: metoPROLOL SUCCINATE 25 MG TAB.SR.24H (FP) PO SCH (09:00)
[2020-11-30] MEDS: ASPIRIN 81 MG CHEWABLE TABLETS PO SCH (09:00)
[2020-11-30] MEDS: ENOXAPARIN NA (PORCINE) 40 MG/0.4 ML DISP.SYRIN SQ SCH (09:01)
[2020-11-30 14:51] VITALS: BP 155/76; PULSE 87; TEMP 98
== END 2020-11-30 14:50 | disposition home or self-care (01) ==
LOC: JER 06:55 → JERBED 10:44 → J8W 14:09
PROVIDERS: ADMIT Internal Medicine; ATTEND Internal Medicine
PROC: 3E023GC Introduction of Other Therapeutic Substance into Muscle, Percutaneous Approach (ICD-10-PCS; principal; 2020-11-28)
PROC: 3E013VG Introduction of Insulin into Subcutaneous Tissue, Percutaneous Approach (ICD-10-PCS; 2020-11-28)
PROC: 3E033GC Introduction of Other Therapeutic Substance into Peripheral Vein, Percutaneous Approach (ICD-10-PCS; 2020-11-28)
PROC: 3E0337Z Introduction of Electrolytic and Water Balance Substance into Peripheral Vein, Percutaneous Approach (ICD-10-PCS; 2020-11-28)
DX: R42 Dizziness and giddiness (principal); I10 Essential (primary) hypertension; E78.5 Hyperlipidemia, unspecified; D49.7 Neoplasm of unspecified behavior of endocrine glands and other parts of nervous system; E11.9 Type 2 diabetes mellitus without complications; D49.9 Neoplasm of unspecified behavior of unspecified site; Z88.8 Allergy status to other drugs, medicaments and biological substances; R20.2 Paresthesia of skin
CPT/HCPCS: 36415; 70450-TC; 80053; 82550; 82962; 83735; 84100; 84484; 85025; 85027; 85610; 85730; 93005; 93010; 96360; 96372; 99285-25; C9803; G0378; U0003; U0005

== ENCOUNTER 2021-02-15 20:08 | Observation (INO) | payer OTHER ==
[2021-02-15] MEDS ORDERED: SODIUM CHLORIDE 0.9% 500 ML INFUS.BAG IV ONE (20:47)
[2021-02-15 21:29] LABS: BASO % 0.6 % (0-2.0); EOS % 4.5 % (0-4.5); HEMATOCRIT 34.4 % (32.4-45.2); HEMOGLOBIN 11.8 GM/dL (10.7-15.3); LYMPH % 31.9 % (8-40); MCH 29.5 pg (25.7-33.7); MCHC 34.2 g/dl (32.0-36.0); MEAN CELL VOLUME 86.3 fl (80-96); MONO % 10.7 % (3.8-10.2); NEUT % 52.3 % (42.8-82.8); PLATELET COUNT 254 10^3/uL (134-434); RBC 3.99 M/mm3 (3.60-5.2); RDW 13.2 % (11.6-15.6); WHITE BLOOD COUNT 5.3 K/mm3 (4.0-10.0)
[2021-02-15 21:57] LABS: CHLORIDE 104 mmol/L (98-107); SODIUM 141 mmol/L (136-145)
[2021-02-15 21:58] LABS: CALCIUM 8.7 mg/dL (8.5-10.1)
[2021-02-15 21:59] LABS: ALBUMIN 3.4 g/dl (3.4-5.0); ANION GAP 11 MMOL/L (8-16); BLOOD UREA NITROGEN 16.2 mg/dL (7-18); CO2 26 mmol/L (21-32)
[2021-02-15 22:01] LABS: GLUCOSE,RANDOM 232 mg/dL (74-106)
[2021-02-15 22:02] LABS: CREATININE 1.1 mg/dL (0.55-1.3); SGPT/ALT 51 U/L (13-61)
[2021-02-15 22:03] LABS: BILIRUBIN,TOTAL 0.3 mg/dL (0.2-1)
[2021-02-15 22:04] LABS: TOT PROT 7.2 g/dl (6.4-8.2)
[2021-02-15 22:05] LABS: ALK PHOS 85 U/L (45-117)
[2021-02-15 22:07] LABS: SGOT/AST 32 U/L (15-37)
[2021-02-16] MEDS ORDERED: ACETAMINOPHEN 325 MG TABLET (FP) PO PRN ×2 (01:50→02:35)
[2021-02-16 02:49] VITALS: BMI 27.6
[2021-02-16] MEDS: INSULIN SLIDING SCALE (NOVOLOG) 1 VIAL SQ SCH ×4 (06:26→21:28)
[2021-02-16 07:02] LABS: HEMATOCRIT 32.7 % (32.4-45.2); HEMOGLOBIN 11.2 GM/dL (10.7-15.3); MCHC 34.2 g/dl (32.0-36.0); MEAN CELL VOLUME 87.9 fl (80-96); MEAN PLT VOLUME 8.3 fl (7.5-11.1); PLATELET COUNT 247 10^3/uL (134-434); RBC 3.72 M/mm3 (3.60-5.2); RDW 13.2 % (11.6-15.6); WHITE BLOOD COUNT 5.4 K/mm3 (4.0-10.0)
[2021-02-16 07:21] LABS: ALBUMIN 3.1 g/dl (3.4-5.0)
[2021-02-16 07:25] LABS: CREATININE 0.9 mg/dL (0.55-1.3); MAGNESIUM 1.6 mg/dL (1.8-2.4)
[2021-02-16 07:26] LABS: CALCIUM 8.7 mg/dL (8.5-10.1); TOT PROT 6.4 g/dl (6.4-8.2)
[2021-02-16 07:27] LABS: BLOOD UREA NITROGEN 13.8 mg/dL (7-18)
[2021-02-16 07:30] LABS: BILIRUBIN,TOTAL 0.3 mg/dL (0.2-1); PHOSPHOROUS 4.4 mg/dL (2.5-4.9)
[2021-02-16] MEDS: ENOXAPARIN NA (PORCINE) 40 MG/0.4 ML DISP.SYRIN SQ SCH (09:42)
[2021-02-16] MEDS ORDERED: MECLIZINE HCL 12.5 MG TABLET PO PRN (14:40)
[2021-02-16 15:35] LABS: EPI CELLS 17 /uL (0-25.1); HYALINE CASTS 0 /uL (0-3.1); URINE APPEARANCE CLEAR; URINE BACTERIA 239 /uL (0-1359); URINE BILIRUBIN NEGATIVE (NEGATIVE); URINE COLOR YELLOW; URINE GLUCOSE (UA) NEGATIVE (NEGATIVE); URINE KETONE NEGATIVE (NEGATIVE); URINE LEUK ESTERASE 2+ (NEGATIVE); URINE NITRITE NEGATIVE (NEGATIVE); URINE PROTEIN NEGATIVE (NEGATIVE); URINE RBC 5 /uL (0-23.9); URINE WBC 98 /uL (0-25.8)
[2021-02-16] MEDS ORDERED: MAGNESIUM OXIDE 400 MG TABLET (FP) PO ONE (17:05)
[2021-02-16] MEDS: ATORVASTATIN CA 10 MG TABLET (FP) PO SCH (21:28)
[2021-02-17] MEDS: INSULIN SLIDING SCALE (NOVOLOG) 1 VIAL SQ SCH ×4 (06:00→21:37)
[2021-02-17 07:22] LABS: HEMOGLOBIN 11.7 GM/dL (10.7-15.3); MCH 29.2 pg (25.7-33.7); MCHC 33.6 g/dl (32.0-36.0); MEAN CELL VOLUME 86.9 fl (80-96); PLATELET COUNT 253 10^3/uL (134-434); RBC 4.02 M/mm3 (3.60-5.2); WHITE BLOOD COUNT 4.3 K/mm3 (4.0-10.0)
[2021-02-17 07:46] LABS: BLOOD UREA NITROGEN 10.6 mg/dL (7-18)
[2021-02-17 07:47] LABS: ALBUMIN 3.4 g/dl (3.4-5.0); CALCIUM 8.9 mg/dL (8.5-10.1); MAGNESIUM 2.2 mg/dL (1.8-2.4)
[2021-02-17 07:49] LABS: CREATININE 0.8 mg/dL (0.55-1.3); PHOSPHOROUS 3.8 mg/dL (2.5-4.9)
[2021-02-17 07:50] LABS: BILIRUBIN,TOTAL 0.5 mg/dL (0.2-1)
[2021-02-17 07:51] LABS: TOT PROT 6.8 g/dl (6.4-8.2)
[2021-02-17] MEDS ORDERED: PATIENT'S OWN MEDICATION (NON-FORMULARY) (Candesartan/Hydrochlorothiazid [Candesartan-Hctz PO SCH (10:00)
[2021-02-17] MEDS: ENOXAPARIN NA (PORCINE) 40 MG/0.4 ML DISP.SYRIN SQ SCH (10:06)
[2021-02-17] MEDS: ASPIRIN 81 MG CHEWABLE TABLETS PO SCH (10:06)
[2021-02-17] MEDS: ATORVASTATIN CA 10 MG TABLET (FP) PO SCH (21:37)
[2021-02-18] MEDS: INSULIN SLIDING SCALE (NOVOLOG) 1 VIAL SQ SCH ×2 (06:07→12:04)
[2021-02-18 09:16] VITALS: BP 118/88; PULSE 85; TEMP 98.6
[2021-02-18] MEDS ORDERED: VALSARTAN 160 MG TABLET PO SCH (10:00)
[2021-02-18] MEDS ORDERED: HYDROCHLOROTHIAZIDE 25 MG TABLET (FP) PO SCH (10:00)
[2021-02-18] MEDS: ASPIRIN 81 MG CHEWABLE TABLETS PO SCH (10:17)
[2021-02-18] MEDS: ENOXAPARIN NA (PORCINE) 40 MG/0.4 ML DISP.SYRIN SQ SCH (10:18)
== END 2021-02-18 13:45 | disposition home or self-care (01) ==
LOC: JER 20:08 → JERBED 20:47 → UNDOADMOB 20:47 → JERBED 02-16 02:11 → J4W 02-16 02:11 → INTOOBSV 02-16 04:06 → OBSVTOIN 02-16 04:06 → J4W 02-16 14:06 → JERBED 02-16 14:06
PROVIDERS: ADMIT Internal Medicine; ATTEND Internal Medicine
PROC: 3E0234Z Introduction of Serum, Toxoid and Vaccine into Muscle, Percutaneous Approach (ICD-10-PCS; principal; 2021-02-16)
PROC: 3E013VG Introduction of Insulin into Subcutaneous Tissue, Percutaneous Approach (ICD-10-PCS; 2021-02-16)
PROC: 3E0337Z Introduction of Electrolytic and Water Balance Substance into Peripheral Vein, Percutaneous Approach (ICD-10-PCS; 2021-02-16)
DX: R55 Syncope and collapse (principal); E11.69 Type 2 diabetes mellitus with other specified complication; E78.5 Hyperlipidemia, unspecified; E23.6 Other disorders of pituitary gland; Z96.642 Presence of left artificial hip joint; I10 Essential (primary) hypertension; R42 Dizziness and giddiness; Z87.891 Personal history of nicotine dependence; Z29.9 Encounter for prophylactic measures, unspecified; Z88.8 Allergy status to other drugs, medicaments and biological substances
CPT/HCPCS: 36415; 70450-TC; 71045-TC-FY; 80053; 80061; 81003; 82533; 82550; 82962; 83036; 83735; 84100; 84436; 84443; 84479; 84484; 85025; 85027; 87086; 93005; 93010; 93306-TC; 93880-TC; 96372; 97116-GP; 97161-GP; 99285-25; C9803; G0378; U0003; U0005

== ENCOUNTER 2021-07-29 07:56 | Emergency (ER) | payer OTHER ==
[2021-07-29 08:19] VITALS: TEMP 98.6; BMI 27.9
[2021-07-29] MEDS ORDERED: ACETAMINOPHEN 325 MG TABLET (FP) PO ONE (08:52)
[2021-07-29] MEDS ORDERED: ACETAMINOPHEN 325 MG TABLET (FP) ONE (09:55)
[2021-07-29 10:31] LABS: HEMATOCRIT 36.5 % (32.4-45.2); HEMOGLOBIN 12.6 GM/dL (10.7-15.3); MCH 30.2 pg (25.7-33.7); MCHC 34.6 g/dl (32.0-36.0); MEAN CELL VOLUME 87.2 fl (80-96); RBC 4.19 M/mm3 (3.60-5.2); RDW 13.5 % (11.6-15.6); WHITE BLOOD COUNT 4.8 K/mm3 (4.0-10.0)
[2021-07-29 10:32] LABS: BASO % 1.1 % (0-2.0); EOS % 4.3 % (0-4.5); LYMPH % 29.2 % (8-40); MEAN PLT VOLUME 8.4 fl (7.5-11.1); MONO % 8.1 % (3.8-10.2); NEUT % 57.3 % (42.8-82.8); PLATELET COUNT 304 10^3/uL (134-434)
[2021-07-29 10:39] LABS: INR 1.03 (0.83-1.09); PROTHROMBIN TIME (PATIENT) 11.9 SEC (9.7-13.0)
[2021-07-29 10:42] LABS: ACTIVATED PTT 26.5 SECONDS (25.2-36.5)
[2021-07-29 10:50] LABS: ALBUMIN 4.2 g/dl (3.4-5.0); CALCIUM 9.9 mg/dL (8.5-10.1)
[2021-07-29 10:51] LABS: BLOOD UREA NITROGEN 20.1 mg/dL (7-18)
[2021-07-29 10:56] LABS: BILIRUBIN,TOTAL 0.4 mg/dL (0.2-1)
[2021-07-29] MEDS ORDERED: SODIUM CHLORIDE 0.9% 500 ML INFUS.BAG IV ONE ×2 (12:56→15:31)
[2021-07-29] MEDS ORDERED: ASPIRIN 81 MG CHEWABLE TABLETS PO ONE (15:32)
[2021-07-29] MEDS ORDERED: metFORMIN HCL 500 MG TABLET (FP) PO ONE (15:32)
[2021-07-29] MEDS ORDERED: metFORMIN HCL 500 MG TABLET (FP) ONE (15:44)
[2021-07-29] MEDS ORDERED: ASPIRIN 81 MG CHEWABLE TABLETS ONE (15:45)
[2021-07-29 16:26] VITALS: BP 127/88; PULSE 79
== END 2021-07-29 16:28 | disposition home or self-care (01) ==
LOC: JER 07:56
DX: R07.89 Other chest pain (principal)
CPT/HCPCS: 36415; 71046-TC-FY; 71275-TC; 74174-TC; 80053; 82962; 84484; 85025; 85610; 85730; 93005; 93010; 99285-25; Q9967

== ENCOUNTER → 2021-09-29 | Day surgery (SDC) | payer OTHER | END | disposition home or self-care (01) | LOC: JRADIR 08:23 | PROVIDERS: ATTEND Internal Medicine Endocrinology, Diabetes & Metabolism | PROC: 0G9K3ZX Drainage of Thyroid Gland, Percutaneous Approach, Diagnostic (ICD-10-PCS; principal; 2021-09-29) | DX: E04.1 Nontoxic single thyroid nodule (principal) | CPT/HCPCS: 10005; 76942; 88173; 88305-TC ==

== ENCOUNTER → 2021-10-14 | Day surgery (SDC) | payer OTHER | END | disposition home or self-care (01) | LOC: JRADIR 10:10 | PROVIDERS: ATTEND Internal Medicine Endocrinology, Diabetes & Metabolism | PROC: 0G9K3ZX Drainage of Thyroid Gland, Percutaneous Approach, Diagnostic (ICD-10-PCS; principal; 2021-10-14) | DX: E04.1 Nontoxic single thyroid nodule (principal) | CPT/HCPCS: 10005; 76942; 88173; 88305-TC ==

== ENCOUNTER → 2021-10-27 | Day surgery (SDC) | payer OTHER | END | disposition home or self-care (01) | LOC: JRADIR 11:47 | PROVIDERS: ATTEND Internal Medicine Endocrinology, Diabetes & Metabolism | PROC: 0G9K3ZX Drainage of Thyroid Gland, Percutaneous Approach, Diagnostic (ICD-10-PCS; principal; 2021-10-27) | DX: E04.1 Nontoxic single thyroid nodule (principal) | CPT/HCPCS: 10005; 76942; 88173; 88305-TC ==

== ENCOUNTER 2021-12-21 01:23 | Observation (INO) | payer OTHER ==
[2021-12-21 03:00] LABS: BASO % 2.1 % (0-2.0); EOS % 3.9 % (0-4.5); HEMATOCRIT 37.7 % (32.4-45.2); HEMOGLOBIN 12.8 GM/dL (10.7-15.3); LYMPH % 26.1 % (8-40); MCH 28.9 pg (25.7-33.7); MEAN CELL VOLUME 84.9 fl (80-96); MONO % 6.5 % (3.8-10.2); NEUT % 61.4 % (42.8-82.8); PLATELET COUNT 285 10^3/uL (134-434); RBC 4.44 M/mm3 (3.60-5.2); RDW 13.7 % (11.6-15.6); WHITE BLOOD COUNT 6.1 K/mm3 (4.0-10.0)
[2021-12-21 03:07] LABS: INR 0.98 (0.83-1.09); PROTHROMBIN TIME (PATIENT) 11.3 SEC (9.7-13.0)
[2021-12-21 03:10] LABS: ACTIVATED PTT 28.4 SECONDS (25.2-36.5)
[2021-12-21 03:24] LABS: BLOOD UREA NITROGEN 16.4 mg/dL (7-18); CALCIUM 9.3 mg/dL (8.5-10.1)
[2021-12-21 03:25] LABS: ALBUMIN 3.9 g/dl (3.4-5.0); MAGNESIUM 1.8 mg/dL (1.8-2.4)
[2021-12-21 03:29] LABS: BILIRUBIN,TOTAL 0.5 mg/dL (0.2-1); TOT PROT 7.8 g/dl (6.4-8.2)
[2021-12-21] MEDS ORDERED: MECLIZINE HCL 12.5 MG TABLET PO PRN (04:57)
[2021-12-21] MEDS ORDERED: IBUPROFEN 400 MG TABLET (FP) PO PRN (06:10)
[2021-12-21 06:46] LABS: HEMATOCRIT 36.2 % (32.4-45.2); HEMOGLOBIN 12.4 GM/dL (10.7-15.3); MCH 29.2 pg (25.7-33.7); MCHC 34.2 g/dl (32.0-36.0); MEAN CELL VOLUME 85.5 fl (80-96); MEAN PLT VOLUME 8.7 fl (7.5-11.1); PLATELET COUNT 231 10^3/uL (134-434); RBC 4.23 M/mm3 (3.60-5.2); RDW 13.8 % (11.6-15.6); WHITE BLOOD COUNT 5.7 K/mm3 (4.0-10.0)
[2021-12-21 07:08] LABS: CALCIUM 9.6 mg/dL (8.5-10.1)
[2021-12-21 07:09] LABS: BLOOD UREA NITROGEN 16.7 mg/dL (7-18)
[2021-12-21 07:12] LABS: CREATININE 0.9 mg/dL (0.55-1.3); PHOSPHOROUS 4.3 mg/dL (2.5-4.9)
[2021-12-21] MEDS: INSULIN SLIDING SCALE (NOVOLOG) 1 VIAL SQ SCH ×4 (08:25→21:54)
[2021-12-21] MEDS: HYDROCHLOROTHIAZIDE 25 MG TABLET (FP) PO SCH (09:43)
[2021-12-21] MEDS: ENOXAPARIN NA (PORCINE) 40 MG/0.4 ML DISP.SYRIN SQ SCH (09:44)
[2021-12-21] MEDS: PANTOPRAZOLE 20 MG TABLET PO SCH (09:44)
[2021-12-21] MEDS: VALSARTAN 160 MG TABLET PO SCH (09:44)
[2021-12-21] MEDS: ASPIRIN 81 MG CHEWABLE TABLETS PO SCH (09:45)
[2021-12-21] MEDS ORDERED: LOSARTAN POTASSIUM 50 MG TABLET PO SCH ×2 (10:00)
[2021-12-21] MEDS ORDERED: PATIENT'S OWN MEDICATION (NON-FORMULARY) (Candesartan/Hydrochlorothiazid [Candesartan-Hctz PO SCH (10:00)
[2021-12-21] MEDS ORDERED: MECLIZINE HCL 25 MG TABLET (FP) PO ONE ×2 (11:00→15:44)
[2021-12-21 12:55] VITALS: BMI 27.9
[2021-12-21] MEDS: CHLORHEXIDINE GLUCONATE 0.12% 15ML CUP PO SCH ×2 (14:30→21:54)
[2021-12-21] MEDS ORDERED: INSULIN (NOVOLOG) ASPART 100 UNITS/ML 10ML VIAL ONE (21:09)
[2021-12-21] MEDS ORDERED: INSULIN (LEVEMIR) 100 UNITS/ML UNITS SQ SCH (22:00)
[2021-12-21] MEDS ORDERED: ATORVASTATIN CA 10 MG TABLET (FP) PO SCH (22:00)
[2021-12-21] MEDS ORDERED: metoPROLOL SUCCINATE 25 MG TAB.SR.24H (FP) PO SCH (22:00)
[2021-12-21] MEDS ORDERED: LATANOPROST 0.005% OPHTH SOLN 2.5ML BOTTLE OU SCH (22:00)
[2021-12-22 03:07] VITALS: RESP 18
[2021-12-22] MEDS: INSULIN SLIDING SCALE (NOVOLOG) 1 VIAL SQ SCH ×2 (06:43→11:32)
[2021-12-22 09:40] VITALS: BP 107/56; PULSE 89; TEMP 98.8
[2021-12-22] MEDS: ENOXAPARIN NA (PORCINE) 40 MG/0.4 ML DISP.SYRIN SQ SCH (10:35)
[2021-12-22] MEDS: HYDROCHLOROTHIAZIDE 25 MG TABLET (FP) PO SCH (10:35)
[2021-12-22] MEDS: PANTOPRAZOLE 20 MG TABLET PO SCH (10:35)
[2021-12-22] MEDS: CHLORHEXIDINE GLUCONATE 0.12% 15ML CUP PO SCH (10:35)
[2021-12-22] MEDS: ASPIRIN 81 MG CHEWABLE TABLETS PO SCH (10:35)
[2021-12-22] MEDS: VALSARTAN 160 MG TABLET PO SCH ×2 (10:36→11:01)
== END 2021-12-22 13:07 | disposition home or self-care (01) ==
LOC: JER 01:23 → JERBED 01:55 → J4W 08:45
PROVIDERS: ADMIT Internal Medicine; ATTEND Nurse Practitioner Family
PROC: 3E023GC Introduction of Other Therapeutic Substance into Muscle, Percutaneous Approach (ICD-10-PCS; principal; 2021-12-21)
PROC: 3E013VG Introduction of Insulin into Subcutaneous Tissue, Percutaneous Approach (ICD-10-PCS; 2021-12-21)
DX: I25.10 Atherosclerotic heart disease of native coronary artery without angina pectoris (principal); I11.9 Hypertensive heart disease without heart failure; R07.9 Chest pain, unspecified; G47.30 Sleep apnea, unspecified; R73.9 Hyperglycemia, unspecified; E78.5 Hyperlipidemia, unspecified; Z29.8 Encounter for other specified prophylactic measures; Z87.891 Personal history of nicotine dependence; J45.909 Unspecified asthma, uncomplicated; M19.90 Unspecified osteoarthritis, unspecified site
CPT/HCPCS: 0241U-QW; 36415; 70450-TC; 71045-TC-FY; 80048; 80053; 82962; 83735; 84100; 84439; 84443; 84484; 85025; 85027; 85610; 85730; 93005; 93010; 93306-TC; 96372; 97116-GP; 97161-GP; 99285-25; G0378

== ENCOUNTER 2022-03-29 16:53 | Observation (INO) | payer OTHER ==
[2022-03-29 17:08] VITALS: BMI 27.4
[2022-03-29] MEDS ORDERED: SODIUM CHLORIDE 0.9% 500 ML INFUS.BAG IV ONE (20:22)
[2022-03-29 21:28] LABS: BASO % 1.1 % (0-2.0); EOS % 4.6 % (0-4.5); HEMATOCRIT 38.8 % (32.4-45.2); HEMOGLOBIN 12.8 GM/dL (10.7-15.3); LYMPH % 34.2 % (8-40); MCH 29.2 pg (25.7-33.7); MEAN CELL VOLUME 88.4 fl (80-96); MEAN PLT VOLUME 8.4 fl (7.5-11.1); MONO % 8.8 % (3.8-10.2); NEUT % 51.3 % (42.8-82.8); PLATELET COUNT 296 10^3/uL (134-434); RBC 4.39 M/mm3 (3.60-5.2); RDW 13.5 % (11.6-15.6); WHITE BLOOD COUNT 6.3 K/mm3 (4.0-10.0)
[2022-03-29 21:40] LABS: INR 0.97 (0.83-1.09); PROTHROMBIN TIME (PATIENT) 11.2 SEC (9.7-13.0)
[2022-03-29 21:42] LABS: ACTIVATED PTT 28.1 SECONDS (25.2-36.5)
[2022-03-29 21:58] LABS: ALBUMIN 3.8 g/dl (3.4-5.0); CALCIUM 9.6 mg/dL (8.5-10.1)
[2022-03-29 21:59] LABS: BLOOD UREA NITROGEN 16.4 mg/dL (7-18)
[2022-03-29 22:02] LABS: CREATININE 0.9 mg/dL (0.55-1.3)
[2022-03-29 22:03] LABS: BILIRUBIN,TOTAL 0.3 mg/dL (0.2-1); TOT PROT 7.4 g/dl (6.4-8.2)
[2022-03-30] MEDS ORDERED: ACETAMINOPHEN 325 MG TABLET (FP) PO ONE (00:27)
[2022-03-30] MEDS ORDERED: ACETAMINOPHEN 325 MG TABLET (FP) ONE (00:52)
[2022-03-30 02:16] VITALS: TEMP 98.4
[2022-03-30 06:35] VITALS: RESP 16
[2022-03-30] MEDS ORDERED: MECLIZINE HCL 12.5 MG TABLET PO PRN (07:41)
[2022-03-30] MEDS ORDERED: ACETAMINOPHEN 500 MG TABLET (FP) PO ONE (09:12)
[2022-03-30 09:37] LABS: BASO % 1.3 % (0-2.0); EOS % 6.5 % (0-4.5); HEMATOCRIT 39.3 % (32.4-45.2); HEMOGLOBIN 13.1 GM/dL (10.7-15.3); LYMPH % 37.1 % (8-40); MCH 29.5 pg (25.7-33.7); MCHC 33.2 g/dl (32.0-36.0); MEAN CELL VOLUME 88.9 fl (80-96); MEAN PLT VOLUME 8.2 fl (7.5-11.1); MONO % 10.1 % (3.8-10.2); PLATELET COUNT 297 10^3/uL (134-434); RBC 4.43 M/mm3 (3.60-5.2); RDW 13.3 % (11.6-15.6); WHITE BLOOD COUNT 4.7 K/mm3 (4.0-10.0)
[2022-03-30] MEDS ORDERED: HYDROCHLOROTHIAZIDE 25 MG TABLET (FP) PO SCH (10:00)
[2022-03-30] MEDS ORDERED: ASPIRIN 81 MG CHEWABLE TABLETS PO SCH (10:00)
[2022-03-30] MEDS ORDERED: LOSARTAN POTASSIUM 50 MG TABLET PO SCH (10:00)
[2022-03-30] MEDS ORDERED: ENOXAPARIN NA (PORCINE) 40 MG/0.4 ML DISP.SYRIN SQ SCH (10:00)
[2022-03-30] MEDS ORDERED: ASPIRIN 81 MG CHEWABLE TABLETS ONE (10:19)
[2022-03-30] MEDS ORDERED: ENOXAPARIN NA (PORCINE) 40 MG/0.4 ML DISP.SYRIN SQ ONE (10:19)
[2022-03-30] MEDS ORDERED: LOSARTAN POTASSIUM 50 MG TABLET ONE (10:19)
[2022-03-30] MEDS ORDERED: ACETAMINOPHEN 500 MG TABLET (FP) ONE (10:22)
[2022-03-30 10:38] VITALS: BP 141/80; PULSE 86
[2022-03-30 10:38] LABS: ALBUMIN 3.7 g/dl (3.4-5.0)
[2022-03-30 10:39] LABS: CALCIUM 9.2 mg/dL (8.5-10.1)
[2022-03-30 10:40] LABS: MAGNESIUM 2.1 mg/dL (1.8-2.4)
[2022-03-30 10:42] LABS: BILIRUBIN,TOTAL 0.4 mg/dL (0.2-1); CREATININE 0.9 mg/dL (0.55-1.3); PHOSPHOROUS 4.4 mg/dL (2.5-4.9); TOT PROT 7.2 g/dl (6.4-8.2)
[2022-03-30] MEDS ORDERED: KETOROLAC TROMETHAMINE 15 MG/ML VIAL IVPUSH ONE (12:38)
[2022-03-30] MEDS ORDERED: MECLIZINE HCL 12.5 MG TABLET PO SCH (14:00)
[2022-03-30] MEDS ORDERED: ATORVASTATIN CA 10 MG TABLET (FP) PO SCH (22:00)
== END 2022-03-30 14:20 | disposition home or self-care (01) ==
LOC: JER 16:53 → JERBED 23:00
PROVIDERS: ADMIT Internal Medicine; ATTEND Internal Medicine
PROC: 3E023GC Introduction of Other Therapeutic Substance into Muscle, Percutaneous Approach (ICD-10-PCS; principal; 2022-03-29)
PROC: 3E0333Z Introduction of Anti-inflammatory into Peripheral Vein, Percutaneous Approach (ICD-10-PCS; 2022-03-29)
PROC: 3E0337Z Introduction of Electrolytic and Water Balance Substance into Peripheral Vein, Percutaneous Approach (ICD-10-PCS; 2022-03-29)
DX: S09.90XA Unspecified injury of head, initial encounter (principal); E11.9 Type 2 diabetes mellitus without complications; I10 Essential (primary) hypertension; E78.5 Hyperlipidemia, unspecified; J45.909 Unspecified asthma, uncomplicated; M19.90 Unspecified osteoarthritis, unspecified site; Z96.642 Presence of left artificial hip joint; R00.2 Palpitations; Z29.8 Encounter for other specified prophylactic measures; Z87.891 Personal history of nicotine dependence; G47.30 Sleep apnea, unspecified; W18.39XA Other fall on same level, initial encounter; Y93.89 Activity, other specified; Y92.009 Unspecified place in unspecified non-institutional (private) residence as the place of occurrence of the external cause; Z88.8 Allergy status to other drugs, medicaments and biological substances
CPT/HCPCS: 0241U-QW; 36415; 70450-TC; 72125-TC; 80053; 82962; 83735; 84100; 84443; 84484; 85025; 85610; 85730; 93005; 93010; 96372; 96374; 97116-GP; 97161-GP; 99285-25; G0378

== ENCOUNTER → 2023-02-20 | Day surgery (SDC) | payer OTHER | END | disposition home or self-care (01) | LOC: JRADIR 09:16 | PROVIDERS: ATTEND Internal Medicine Endocrinology, Diabetes & Metabolism | PROC: 0G9K3ZX Drainage of Thyroid Gland, Percutaneous Approach, Diagnostic (ICD-10-PCS; principal; 2023-02-20) | DX: E04.1 Nontoxic single thyroid nodule (principal) | CPT/HCPCS: 10005; 76942; 88173; 88305-TC ==

== ENCOUNTER 2023-04-27 01:25 | Emergency (ER) | payer OTHER ==
[2023-04-27 01:40] VITALS: TEMP 99.4; BMI 27.9
[2023-04-27] MEDS ORDERED: ACETAMINOPHEN 1000 MG/100 ML BAG IVPB ONE (01:54)
[2023-04-27] MEDS ORDERED: ACETAMINOPHEN INJECTION 100 ML IVPB ONE (02:00)
[2023-04-27 02:15] LABS: BASO % 1.3 % (0-2.0); HEMATOCRIT 38.3 % (32.4-45.2); HEMOGLOBIN 12.8 GM/dL (10.7-15.3); LYMPH % 14.1 % (8-40); MCH 29.3 pg (25.7-33.7); MCHC 33.3 g/dl (32.0-36.0); MEAN CELL VOLUME 87.9 fl (80-96); MEAN PLT VOLUME 7.9 fl (7.5-11.1); MONO % 15.7 % (3.8-10.2); NEUT % 65.9 % (42.8-82.8); PLATELET COUNT 273 10^3/uL (134-434); RBC 4.36 M/mm3 (3.60-5.2); WHITE BLOOD COUNT 7.1 K/mm3 (4.0-10.0)
[2023-04-27 02:22] LABS: INR 1.03 (0.83-1.09)
[2023-04-27 02:25] LABS: ACTIVATED PTT 26.6 SECONDS (25.2-36.5)
[2023-04-27 02:34] LABS: POTASSIUM 4.2 mmol/L (3.5-5.1)
[2023-04-27 02:36] LABS: CALCIUM 9.3 mg/dL (8.5-10.1)
[2023-04-27 02:37] LABS: ALBUMIN 3.9 g/dl (3.4-5.0); BLOOD UREA NITROGEN 19.4 mg/dL (7-18)
[2023-04-27 02:40] LABS: CREATININE 1.3 mg/dL (0.55-1.3)
[2023-04-27 02:42] LABS: BILIRUBIN,TOTAL 0.5 mg/dL (0.2-1); TOT PROT 7.4 g/dl (6.4-8.2)
[2023-04-27] MEDS ORDERED: SODIUM CHLORIDE 0.9% 500 ML INFUS.BAG IV ONE (03:05)
[2023-04-27] MEDS ORDERED: MECLIZINE HCL 25 MG TABLET (FP) ONE (03:16)
[2023-04-27] MEDS ORDERED: MECLIZINE HCL 25 MG TABLET (FP) PO ONE (03:16)
[2023-04-27 03:43] LABS: URINE APPEARANCE CLEAR; URINE BILIRUBIN NEGATIVE (NEGATIVE); URINE COLOR YELLOW; URINE GLUCOSE (UA) NEGATIVE (NEGATIVE); URINE KETONE NEGATIVE (NEGATIVE); URINE LEUK ESTERASE TRACE (NEGATIVE); URINE NITRITE NEGATIVE (NEGATIVE); URINE PROTEIN NEGATIVE (NEGATIVE); URINE UROBILINOGEN 0.2 mg/dL (0.2-1.0)
[2023-04-27 03:56] VITALS: BP 113/61; PULSE 94; RESP 18
[2023-04-27 07:05] LABS: EPI CELLS 3.8 /uL (0-25.1); HYALINE CASTS 0 /uL (0-3.1); URINE BACTERIA 9.6 /uL (0-1359); URINE RBC 6.8 /uL (0-23.9); URINE WBC 15.5 /uL (0-25.8)
== END 2023-04-27 07:00 | disposition home or self-care (01) ==
LOC: JER 01:25
PROC: 3E033NZ Introduction of Analgesics, Hypnotics, Sedatives into Peripheral Vein, Percutaneous Approach (ICD-10-PCS; principal; 2023-04-27)
DX: R51.9 Headache, unspecified (principal); R05.9 Cough, unspecified; R50.9 Fever, unspecified; R42 Dizziness and giddiness; J32.9 Chronic sinusitis, unspecified; U07.1 COVID-19
CPT/HCPCS: 0241U-QW; 36415; 70450-TC; 71045-TC-FY; 80053; 81003; 84484; 85025; 85610; 85730; 87086; 93005; 93010; 96374; 99285-25

== ENCOUNTER 2023-09-01 18:23 | Inpatient (IN) | payer OTHER ==
[2023-09-01 20:04] LABS: EPI CELLS 17 /uL (0-25.1); HYALINE CASTS 0 /uL (0-3.1); URINE APPEARANCE CLEAR; URINE BACTERIA 36 /uL (0-1359); URINE BILIRUBIN NEGATIVE (NEGATIVE); URINE COLOR YELLOW; URINE GLUCOSE (UA) NEGATIVE (NEGATIVE); URINE KETONE NEGATIVE (NEGATIVE); URINE LEUK ESTERASE 1+ (NEGATIVE); URINE NITRITE NEGATIVE (NEGATIVE); URINE PROTEIN NEGATIVE (NEGATIVE); URINE RBC 6 /uL (0-23.9); URINE UROBILINOGEN 0.2 mg/dL (0.2-1.0); URINE WBC 32 /uL (0-25.8)
[2023-09-01 20:05] LABS: EOS % 2.1 % (0-4.5); HEMATOCRIT 39.1 % (32.4-45.2); HEMOGLOBIN 12.9 GM/dL (10.7-15.3); LYMPH % 23.3 % (8-40); MCH 29.3 pg (25.7-33.7); MCHC 33.1 g/dl (32.0-36.0); MEAN CELL VOLUME 88.6 fl (80-96); MEAN PLT VOLUME 7.9 fl (7.5-11.1); MONO % 10.1 % (3.8-10.2); NEUT % 63.5 % (42.8-82.8); PLATELET COUNT 277 10^3/uL (134-434); RBC 4.41 M/mm3 (3.60-5.2); WHITE BLOOD COUNT 8.5 K/mm3 (4.0-10.0)
[2023-09-01 20:19] LABS: CHLORIDE 107 mmol/L (98-107); POTASSIUM 4.7 mmol/L (3.5-5.1); SODIUM 138 mmol/L (136-145)
[2023-09-01 20:21] LABS: CALCIUM 9.4 mg/dL (8.5-10.1)
[2023-09-01 20:22] LABS: ALBUMIN 3.8 g/dl (3.4-5.0); ANION GAP 1 mmol/L (4-13); BLOOD UREA NITROGEN 12.6 mg/dL (7-18); CO2 30 mmol/L (21-32); GLUCOSE,RANDOM 54 mg/dL (74-106)
[2023-09-01 20:25] LABS: SGOT/AST 26 U/L (15-37); SGPT/ALT 39 U/L (13-61)
[2023-09-01 20:27] LABS: BILIRUBIN,TOTAL 0.3 mg/dL (0.2-1); TOT PROT 7.5 g/dl (6.4-8.2)
[2023-09-01 20:28] LABS: ALK PHOS 128 U/L (45-117)
[2023-09-01] MEDS: DEXTROSE 5%-0.45% SALINE 1,000 ML IV SCH (23:34)
[2023-09-02] MEDS: INSULIN ASPART SLIDING SCALE (NOVOLOG) 1 VIAL SQ SCH ×2 (00:08→16:49)
[2023-09-02] MEDS: INSULIN (LEVEMIR) 100 UNITS/ML UNITS SQ SCH ×2 (06:06→21:25)
[2023-09-02] MEDS: INSULIN (NOVOLOG) ASPART 100 UNITS/ML 10ML VIAL SQ SCH ×2 (06:07→12:20)
[2023-09-02 08:52] LABS: HEMOGLOBIN 12.1 GM/dL (10.7-15.3); MCH 29.4 pg (25.7-33.7); MCHC 33.5 g/dl (32.0-36.0); MEAN CELL VOLUME 87.8 fl (80-96); MEAN PLT VOLUME 8.3 fl (7.5-11.1); PLATELET COUNT 238 10^3/uL (134-434); RDW 14.5 % (11.6-15.6); WHITE BLOOD COUNT 6.1 K/mm3 (4.0-10.0)
[2023-09-02 09:04] LABS: POTASSIUM 4.4 mmol/L (3.5-5.1)
[2023-09-02] MEDS: ENOXAPARIN NA (PORCINE) 40 MG/0.4 ML DISP.SYRIN SQ SCH (09:21)
[2023-09-02] MEDS: LOSARTAN POTASSIUM 50 MG TABLET PO SCH ×2 (09:21→21:24)
[2023-09-02] MEDS: ASPIRIN 81 MG CHEWABLE TABLETS PO SCH (09:21)
[2023-09-02] MEDS: metoPROLOL SUCCINATE 25 MG TAB.SR.24H (FP) PO SCH (09:21)
[2023-09-02 09:32] LABS: ALBUMIN 3.3 g/dl (3.4-5.0); CALCIUM 9.2 mg/dL (8.5-10.1)
[2023-09-02 09:33] LABS: BLOOD UREA NITROGEN 11.2 mg/dL (7-18)
[2023-09-02 09:36] LABS: CREATININE 0.9 mg/dL (0.55-1.3)
[2023-09-02 09:37] LABS: BILIRUBIN,TOTAL 0.7 mg/dL (0.2-1); TOT PROT 6.7 g/dl (6.4-8.2)
[2023-09-02] MEDS: ATORVASTATIN CA 10 MG TABLET (FP) PO SCH (21:24)
[2023-09-02] MEDS: MECLIZINE HCL 12.5 MG TABLET PO PRN (21:25)
[2023-09-02] MEDS ORDERED: INSULIN (LEVEMIR) 100 UNITS/ML UNITS SQ SCH ×3 (22:00)
[2023-09-03] MEDS: INSULIN (LEVEMIR) 100 UNITS/ML UNITS SQ SCH (06:21)
[2023-09-03] MEDS: metFORMIN HCL 500 MG TABLET (FP) PO SCH (06:22)
[2023-09-03 07:54] LABS: CHLORIDE 105 mmol/L (98-107); POTASSIUM 4.7 mmol/L (3.5-5.1); SODIUM 137 mmol/L (136-145)
[2023-09-03 07:56] LABS: ANION GAP 1 mmol/L (4-13); CO2 31 mmol/L (21-32)
[2023-09-03 07:58] LABS: ALBUMIN 3.6 g/dl (3.4-5.0); BLOOD UREA NITROGEN 15.6 mg/dL (7-18); GLUCOSE,RANDOM 146 mg/dL (74-106)
[2023-09-03 08:01] LABS: CALCIUM 9.3 mg/dL (8.5-10.1); CREATININE 1.1 mg/dL (0.55-1.3); SGPT/ALT 37 U/L (13-61)
[2023-09-03 08:02] LABS: SGOT/AST 19 U/L (15-37)
[2023-09-03 08:04] LABS: ALK PHOS 129 U/L (45-117)
[2023-09-03 08:05] LABS: BILIRUBIN,TOTAL 0.6 mg/dL (0.2-1); TOT PROT 7.4 g/dl (6.4-8.2)
[2023-09-03 15:01] VITALS: RESP 20
[2023-09-04 12:05] VITALS: BP 117/62; PULSE 82; TEMP 99.2
[2023-09-04 14:21] VITALS: BMI 29.2
[2023-09-04 15:09] LABS: MAGNESIUM 2.7 mg/dL (1.8-2.4)
[2023-09-04 15:13] LABS: MAGNESIUM 2.4 mg/dL (1.8-2.4)
[2023-09-04 15:16] LABS: CHOLESTEROL 205 mg/dL (50-200)
[2023-09-04 15:17] LABS: LDL CHOLESTEROL (ONLY SJRH) 89 mg/dL (5-100)
[2023-09-04 15:19] LABS: HDL CHOLESTEROL 97 mg/dL (40-60)
== END 2023-09-04 13:52 | disposition home or self-care (01) | DRG 639 ==
LOC: JER 18:23 → JERBED 20:57 → J5S 09-02 03:50
PROVIDERS: ADMIT Internal Medicine
DX: E11.649 Type 2 diabetes mellitus with hypoglycemia without coma (principal); I10 Essential (primary) hypertension; E78.5 Hyperlipidemia, unspecified; I25.10 Atherosclerotic heart disease of native coronary artery without angina pectoris; E11.40 Type 2 diabetes mellitus with diabetic neuropathy, unspecified; G47.33 Obstructive sleep apnea (adult) (pediatric); J45.909 Unspecified asthma, uncomplicated
CPT/HCPCS: 0241U-QW; 36415; 71045-TC-FY; 80053; 80061; 81003; 82533; 82550; 82962; 83036; 83735; 84439; 84443; 84484; 85025; 85027; 87086; 93005; 93010; 99285-25

== ENCOUNTER 2023-12-10 01:47 | Emergency (ER) | payer OTHER ==
[2023-12-10 01:52] VITALS: BP 130/78; PULSE 72; RESP 16; TEMP 98; BMI 27.4
[2023-12-10] MEDS ORDERED: LIDOCAINE 5% TOPICAL PATCH ONE (03:10)
[2023-12-10] MEDS ORDERED: ACETAMINOPHEN 325 MG TABLET (FP) ONE (03:10)
[2023-12-10] MEDS: ACETAMINOPHEN 325 MG TABLET (FP) PO ONE (03:16)
[2023-12-10] MEDS: LIDOCAINE 5% TOPICAL PATCH TP ONE (03:16)
[2023-12-10] MEDS ORDERED: LIDOCAINE PATCH REMOVAL MC SCH ×2 (15:18→22:00)
== END 2023-12-10 04:27 | disposition home or self-care (01) ==
LOC: JER 01:47
DX: M25.552 Pain in left hip (principal)
CPT/HCPCS: 73502-TC-LT-FY; 99283-25

== ENCOUNTER 2023-12-13 12:35 | Emergency (ER) | payer OTHER ==
[2023-12-13 12:43] VITALS: PULSE 90; BMI 28.5
[2023-12-13] MEDS ORDERED: ACETAMINOPHEN 500 MG TABLET (FP) ONE (13:39)
[2023-12-13] MEDS: ACETAMINOPHEN 500 MG TABLET (FP) PO ONE (13:39)
[2023-12-13 14:09] LABS: BASO % 1.6 % (0-2.0); EOS % 5.3 % (0-4.5); HEMATOCRIT 36.5 % (32.4-45.2); HEMOGLOBIN 12.2 GM/dL (10.7-15.3); LYMPH % 34.8 % (8-40); MCH 29.6 pg (25.7-33.7); MCHC 33.4 g/dl (32.0-36.0); MEAN CELL VOLUME 88.7 fl (80-96); MEAN PLT VOLUME 8.2 fl (7.5-11.1); MONO % 10.1 % (3.8-10.2); NEUT % 48.2 % (42.8-82.8); PLATELET COUNT 251 10^3/uL (134-434); RBC 4.11 M/mm3 (3.60-5.2); RDW 13.2 % (11.6-15.6); WHITE BLOOD COUNT 5.7 K/mm3 (4.0-10.0)
[2023-12-13 14:10] LABS: PH,URINE 5.5 (5.0-8.0); URINE APPEARANCE CLEAR; URINE BILIRUBIN NEGATIVE (NEGATIVE); URINE COLOR YELLOW; URINE GLUCOSE (UA) NEGATIVE (NEGATIVE); URINE KETONE NEGATIVE (NEGATIVE); URINE LEUK ESTERASE NEGATIVE (NEGATIVE); URINE NITRITE NEGATIVE (NEGATIVE); URINE PROTEIN NEGATIVE (NEGATIVE); URINE UROBILINOGEN 0.2 mg/dL (0.2-1.0)
[2023-12-13 14:32] LABS: POTASSIUM 4.8 mmol/L (3.5-5.1)
[2023-12-13 14:34] LABS: CALCIUM 9.3 mg/dL (8.5-10.1)
[2023-12-13 14:35] LABS: BLOOD UREA NITROGEN 16.7 mg/dL (7-18)
[2023-12-13 14:38] LABS: CREATININE 1.1 mg/dL (0.55-1.3)
[2023-12-13 14:40] LABS: BILIRUBIN,TOTAL 0.5 mg/dL (0.2-1); TOT PROT 7.3 g/dl (6.4-8.2)
[2023-12-13 17:48] VITALS: BP 164/97; RESP 18; TEMP 98.3
[2023-12-13 18:01] LABS: HIV INTERPRETATION NEGATIVE (NEGATIVE)
== END 2023-12-13 18:03 | disposition home or self-care (01) ==
LOC: JERFT 12:35
DX: R10.32 Left lower quadrant pain (principal)
CPT/HCPCS: 36415; 74177-TC; 80053; 81003; 85025; 86803; 87086; 87389; 99285-25; Q9967

== ENCOUNTER 2024-05-30 01:14 | Emergency (ER) | payer OTHER ==
[2024-05-30 01:29] VITALS: BMI 27.9
[2024-05-30 02:38] LABS: BASO % 1.1 % (0-2.0); EOS % 5.8 % (0-4.5); HEMATOCRIT 37.4 % (32.4-45.2); HEMOGLOBIN 12.7 GM/dL (10.7-15.3); LYMPH % 39.1 % (8-40); MCH 29.4 pg (25.7-33.7); MCHC 33.9 g/dl (32.0-36.0); MEAN CELL VOLUME 86.6 fl (80-96); MEAN PLT VOLUME 8.4 fl (7.5-11.1); MONO % 10.5 % (3.8-10.2); NEUT % 43.5 % (42.8-82.8); PLATELET COUNT 252 10^3/uL (134-434); RBC 4.32 M/mm3 (3.60-5.2); RDW 13.9 % (11.6-15.6); WHITE BLOOD COUNT 6.2 K/mm3 (4.0-10.0)
[2024-05-30 02:46] LABS: PROTHROMBIN TIME (PATIENT) 11.3 SEC (9.7-13.0)
[2024-05-30 02:48] LABS: ACTIVATED PTT 28.7 SECONDS (25.2-36.5)
[2024-05-30 03:04] LABS: POTASSIUM 4.4 mmol/L (3.5-5.1)
[2024-05-30 03:06] LABS: ALBUMIN 3.8 g/dl (3.4-5.0); BLOOD UREA NITROGEN 15.2 mg/dL (7-18); CALCIUM 9.6 mg/dL (8.5-10.1)
[2024-05-30 03:07] LABS: MAGNESIUM 1.8 mg/dL (1.8-2.4)
[2024-05-30 03:11] LABS: BILIRUBIN,TOTAL 0.8 mg/dL (0.2-1); TOT PROT 7.3 g/dl (6.4-8.2)
[2024-05-30] MEDS ORDERED: ACETAMINOPHEN 325 MG TABLET (FP) ONE (03:11)
[2024-05-30] MEDS ORDERED: LIDOCAINE 5% TOPICAL PATCH ONE (03:11)
[2024-05-30 03:15] LABS: N-TERMINAL BNP 19.4 pg/ml (5-125)
[2024-05-30] MEDS: LIDOCAINE 5% TOPICAL PATCH TP ONE (03:20)
[2024-05-30] MEDS: ACETAMINOPHEN 325 MG TABLET (FP) PO ONE (03:20)
[2024-05-30 04:41] LABS: CALCIUM 9.3 mg/dL (8.5-10.1)
[2024-05-30 04:43] LABS: BLOOD UREA NITROGEN 15.3 mg/dL (7-18); POTASSIUM 3.8 mmol/L (3.5-5.1)
[2024-05-30 06:08] VITALS: BP 109/67; PULSE 67; RESP 18; TEMP 98.7
== END 2024-05-30 06:15 | disposition home or self-care (01) ==
LOC: JER 01:14
DX: M54.6 Pain in thoracic spine (principal); R07.89 Other chest pain
CPT/HCPCS: 36415; 71045-TC-FY; 80048; 80053; 83735; 83880; 84484; 85025; 85610; 85730; 86850; 86900; 86901; 93005; 93010; 99285-25

== ENCOUNTER 2024-06-26 09:22 | Emergency (ER) | payer OTHER ==
[2024-06-26 09:29] VITALS: BP 126/96; PULSE 80; RESP 18; TEMP 98.6; BMI 27.9
[2024-06-26] MEDS ORDERED: ACETAMINOPHEN INJECTION 100 ML ONE (10:16)
[2024-06-26] MEDS: ACETAMINOPHEN 1000 MG/100 ML BAG IVPB ONE (10:30)
[2024-06-26 11:27] LABS: BASO % 0.8 % (0-2.0); EOS % 6.7 % (0-4.5); HEMATOCRIT 37.3 % (32.4-45.2); HEMOGLOBIN 12.6 GM/dL (10.7-15.3); LYMPH % 34.7 % (8-40); MCH 29.2 pg (25.7-33.7); MCHC 33.6 g/dl (32.0-36.0); MEAN CELL VOLUME 86.9 fl (80-96); MEAN PLT VOLUME 7.8 fl (7.5-11.1); MONO % 9.3 % (3.8-10.2); NEUT % 48.5 % (42.8-82.8); PLATELET COUNT 276 10^3/uL (134-434); RDW 13.5 % (11.6-15.6)
[2024-06-26 11:31] LABS: INR 1.05 (0.83-1.09); PROTHROMBIN TIME (PATIENT) 11.4 SEC (9.7-13.0)
[2024-06-26 11:34] LABS: ACTIVATED PTT 28.3 SECONDS (25.2-36.5)
[2024-06-26 11:49] LABS: POTASSIUM 4.7 mmol/L (3.5-5.1)
[2024-06-26 11:51] LABS: CALCIUM 9.5 mg/dL (8.5-10.1)
[2024-06-26 11:52] LABS: BLOOD UREA NITROGEN 14.5 mg/dL (7-18)
[2024-06-26 11:53] LABS: PH,URINE 5.5 (5.0-8.0); URINE APPEARANCE CLEAR; URINE BILIRUBIN NEGATIVE (NEGATIVE); URINE COLOR YELLOW; URINE GLUCOSE (UA) NEGATIVE (NEGATIVE); URINE KETONE NEGATIVE (NEGATIVE); URINE LEUK ESTERASE NEGATIVE (NEGATIVE); URINE NITRITE NEGATIVE (NEGATIVE); URINE PROTEIN NEGATIVE (NEGATIVE); URINE UROBILINOGEN 0.2 mg/dL (0.2-1.0)
[2024-06-26 11:56] LABS: BILIRUBIN,TOTAL 0.7 mg/dL (0.2-1)
[2024-06-26 11:57] LABS: TOT PROT 7.8 g/dl (6.4-8.2)
[2024-06-26 12:47] LABS: HCV DIAGNOSTIC IN-HOUSE W/RFLX NON-REACTIVE (NONREACTIVE)
[2024-06-26 12:48] LABS: HIV INTERPRETATION NEGATIVE (NEGATIVE)
== END 2024-06-26 15:07 | disposition home or self-care (01) ==
LOC: JER 09:22
PROC: 3E033GC Introduction of Other Therapeutic Substance into Peripheral Vein, Percutaneous Approach (ICD-10-PCS; principal; 2024-06-26)
DX: R10.30 Lower abdominal pain, unspecified (principal); M54.50 Low back pain, unspecified
CPT/HCPCS: 36415; 74177-TC; 80053; 81003; 83605; 83690; 84484; 85025; 85610; 85730; 86803; 87086; 87389; 93005; 93010; 96374; 99285-25; J0131